=== PATIENT | male | born 1965 | race African-American/Black ===

== ENCOUNTER 2016-10-03 21:15 | Inpatient (IN) | payer OTHER ==
[2016-10-03 21:35] VITALS: BMI 37.8
--- NOTE | 2016-10-03 21:55 | HP ---
COWS - Scale Resting Pulse: 2= MD 101-120 Sweatin= Beads of Sweat on Face Restless Observation: 1= Difficult to Sit Still Pupil Size: 1= Pupils >than Normal Bone or Joint Aches: 4=Acute Joint/Muscle Pain Runny Nose/ Eye Tearin= Runny Nose/Eyes GI Upset > 30mins: 2= Nausea/Diarrhea Tremor Observation: 2= Slight Tremor Visible Yawning Observation: 0= None Anxiety or Irritability: 2=Irritable/Anxious Goose Flesh Skin: 0=Smooth Skin COWS Score: 19 CIWA Score - CIWA Score Nausea/Vomitin Muscle Tremors: 4-Moderate,w/Arms Extend Anxiety: 4-Mod. Anxious/Guarded Agitation: 4-Moderately Restless Paroxysmal Sweats: 4-Forehead w/Sweat Beads Orientation: 0-Oriented Tacttile Disturbances: 0-None Auditory Disturbances: 2-Mild Harshness/Frighten Visual Disturbances: 0-None Headache: 3-Moderate CIWA-Ar Total Score: 24 Admission ROS BHS - HPI Chief Complaint: C/O WITHDRAWAL SX'S. SEEKING DETOX TXMENT Allergies/Adverse Reactions: Allergies Allergy/AdvReac Type Severity Reaction Status Date / Time No Known Allergies Allergy Verified 10/03/16 21:48 History of Present Illness: 51 Y.O. MALE WITH POLYSUBSTANCE ABUSE ADMITTED TO DETOX. CLIENT IS KNOWN TO [facility]. REPORTS LONGEST CLEAN TIME 6 MONTHS. Exam Limitations: No Limitations - Ebola screening Have you traveled outside of the country in the last 21 days: No (N) Have you had contact with anyone from an Ebola affected area: No Have you been sick,other than usual withdrawal symptoms: No Do you have a fever: No - Review of Systems Constitutional: Chills, Diaphoresis, Loss of Appetite, Malaise, Night Sweats, Changes in sleep EENT: reports: No Symptoms Reported Respiratory: reports: No Symptoms reported Cardiac: reports: No Symptoms Reported GI: reports: Diarrhea, Poor Appetite, Abdominal cramping : reports: No Symptoms Reported Musculoskeletal: reports: Joint Pain (R HIP/ THIGH) Integumentary: reports: No Symptoms Reported Neuro: reports: No Symptoms reported Endocrine: reports: No Symptoms Reported Hematology: reports: No Symptoms Reported Psychiatric: reports: Anxious Other Systems: Reviewed and Negative Patient History - Patient Medical History Hx Anemia: No Hx Asthma: No Hx Chronic Obstructive Pulmonary Disease (COPD): No Hx Cancer: No Hx Cardiac Disorders: No Hx Congestive Heart Failure: No Hx Hypertension: No Hx Hypercholesterolemia: No Hx Pacemaker: No HX Cerebrovascular Accident: No Hx Seizures: No Hx Diabetes: No Hx Gastrointestinal Disorders: No Hx Liver Disease: No Hx Genitourinary Disorders: No Hx Sexually Transmitted Disorders: No Hx Renal Disease (ESRD): No Hx Thyroid Disease: No Hx Human Immunodeficiency Virus (HIV): No Hx Hepatitis C: No Hx Depression: No Hx Suicide Attempt: No Hx Bipolar Disorder: No Hx Schizophrenia: No Other Medical History: ANXIETY, DJD OF R HIP - Patient Surgical History Past Surgical History: Yes Hx Neurologic Surgery: No Hx Cataract Extraction: No Hx Cardiac Surgery: No Hx Lung Surgery: No Hx Breast Surgery: No Hx Breast Biopsy: No Hx Abdominal Surgery: No Hx Appendectomy: No Hx Cholecystectomy: No Hx Genitourinary Surgery: No Hx Section: No Hx Orthopedic Surgery: Yes (FX. LEFT ELBOW 01/2014) Anesthesia Reaction: No - PPD History Previous Implant?: Yes Documented Results: Positive w/o proof Implanted On Prior [facility] Admission?: No PPD to be Administered?: No - Smoking Cessation Smoking history: Current every day smoker Have you smoked in the past 12 months: Yes Aproximately how many cigarettes per day: 20 Cigars Per Day: 0 Hx Chewing Tobacco Use: No Initiated information on smoking cessation: Yes 'Breaking Loose' booklet given: 10/03/16 - Substance & Tx. History Hx Alcohol Use: Yes Hx Substance Use: Yes Substance Use Type: Alcohol, Cocaine, Opiates, Tranquilizers Hx Substance Use Treatment: Yes ([facility]) - Substances Abused HEROIN Route: Inhalation Frequency: Daily Amount used: 40 BAGS Age of first use: 21 Date of Last Use: 10/03/16 COCAINE Route: Smoking Frequency: Daily Amount used: 1 GM Age of first use: 20 Date of Last Use: 10/03/16 XANAX Route: Oral Frequency: Daily Amount used: 4 MG Age of first use: 49 Date of Last Use: 10/03/16 VODKA Route: Oral Frequency: Daily Amount used: 1 PINT Age of first use: 13 Date of Last Use: 10/03/16 Family Disease History - Family Disease History Family Disease History: Diabetes: Grandparent (HTN), Mother (HTN), Heart Disease : Grandparent, Mother, Other: Father (alcohol,dsa), Brother (dsa,alcohol) Admission Physical Exam [facility] - Vital Signs Vital Signs: Vital Signs - 24 hr 10/03/16 21:33 Temperature 98.6 F Pulse Rate 103 H Respiratory 20 Rate Blood Pressure 120/79 - Physical General Appearance: Yes: Appropriately Dressed, Mild Distress, Tremorous, Anxious HEENTM: Yes: EOMI, Normocephalic, Normal Voice, Pharynx Normal, Other (POOR DENTITION) Respiratory: Yes: Chest Non-Tender, Lungs Clear, Normal Breath Sounds, No Respiratory Distress, No Accessory Muscle Use Neck: Yes: No masses,lesions,Nodules, Supple, Trachea in good position Breast: Yes: Breast Exam Deferred Cardiology: Yes: Regular Rhythm, Regular Rate, S1, S2 Abdominal: Yes: Non Tender, Soft, Surgical Scar Genitourinary: Yes: Within Normal Limits Back: Yes: Within Normal Limits Musculoskeletal: Yes: Joint Stiffness, Other (LROM TO R PAIN) Extremities: Yes: Tremors Neurological: 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: 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 II-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 NML intact, Fully Oriented, Alert Integumentary: Yes: Clammy, Moist Lymphatic: Yes: Within Normal Limits - Diagnostic (1) Alcohol dependence with uncomplicated withdrawal Current Visit: Yes Status: Chronic (2) Cocaine dependence, uncomplicated Current Visit: Yes Status: Chronic (3) Nicotine dependence Current Visit: Yes Status: Chronic Qualifiers: Nicotine product type: cigarettes Substance use status: uncomplicated Qualified Code(s): F17.210 - Nicotine dependence, cigarettes, uncomplicated (4) Opioid dependence with withdrawal Current Visit: Yes Status: Chronic (5) Sedative, hypnotic or anxiolytic dependence with withdrawal, uncomplicated Current Visit: Yes Status: Chronic (6) Degenerative joint disease of right hip Current Visit: Yes Status: Chronic Qualifiers: Osteoarthritis type: unspecified Qualified Code(s): M16.11 - Unilateral primary osteoarthritis, right hip Cleared for Admission [facility] - Detox or Rehab [facility] Level of Care: Medically Managed Detox Regimen/Protocol: Methadone/Valium [facility] Breath Alcohol Content Breath Alcohol Content: 0 Urine Drug Screen - Results Urine Drug Screen Results: JESSE-Cocaine, OPI-Opiates, BZO-Benzodiazepines
[2016-10-03] MEDS ORDERED: guaiFENesin/D-METHORPHAN HB 10 ML UNIT-DOSE CUPS PO PRN (22:11)
[2016-10-03] MEDS ORDERED: MAGNESIUM CITRATE 300 ML BOTTLE PO PRN (22:11)
[2016-10-03] MEDS ORDERED: MAGNESIUM HYDROX 2400MG/30ML ORAL SUSPENSION 30 ML CUP PO PRN (22:11)
[2016-10-03] MEDS ORDERED: ACETAMINOPHEN 325 MG TABLET (FP) PO PRN (22:11)
[2016-10-03] MEDS ORDERED: MAG HYDROX/AL HYDROX/SIMETH 30 ML UNIT-DOSE CUP PO PRN (22:11)
[2016-10-03] MEDS ORDERED: hydrOXYzine PAMOATE 50 MG CAPSULE (FP) PO PRN (22:11)
[2016-10-03] MEDS ORDERED: MENTHOL/PHENOL 1 EACH UD MM PRN (22:11)
[2016-10-03] MEDS ORDERED: METHADONE HCL 10 MG TABLET (FOR DETOX USE ONLY) PO ONE ×2 (22:11→23:00)
[2016-10-03] MEDS ORDERED: diazePAM 5 MG TABLET PO ONE (22:11)
[2016-10-03] MEDS ORDERED: LOPERAMIDE HCL 2 MG CAPSULE PO PRN (22:11)
[2016-10-03] MEDS ORDERED: IBUPROFEN 400 MG TABLET (FP) PO PRN (22:11)
[2016-10-03] MEDS ORDERED: P-EPHED 60MG/TRIPROLIDI 2.5MG TABLET PO PRN (22:11)
[2016-10-03] MEDS ORDERED: cloNIDine HCL 0.1 MG TABLET PO PRN (22:13)
[2016-10-03] MEDS ORDERED: CYCLOBENZAPRINE HCL 10 MG TABLET (FP) PO PRN (22:14)
[2016-10-04] MEDS ORDERED: METHADONE HCL 10 MG TABLET (FOR DETOX USE ONLY) PO ONE ×3 (00:22→23:00)
[2016-10-04] MEDS ORDERED: diazePAM 5 MG TABLET PO PRN (00:22)
[2016-10-04] MEDS: diazePAM 5 MG TABLET PO SCH ×4 (00:33→22:05)
[2016-10-04] MEDS: NAPROXEN 500 MG TABLET (FP) PO SCH ×3 (00:33→22:05)
[2016-10-04] MEDS: diphenhydrAMINE HCL 50 MG CAPSULE PO PRN ×2 (02:06→22:05)
--- NOTE | 2016-10-04 09:59 | PN ---
[facility] CIWA - CIWA Score Nausea/Vomitin-Mild Nausea/No Vomiting Muscle Tremors: 3 Anxiety: 4-Mod. Anxious/Guarded Agitation: 3 Paroxysmal Sweats: 3 Orientation: 0-Oriented Tacttile Disturbances: 0-None Auditory Disturbances: 0-None Visual Disturbances: 0-None Headache: 0-None Present CIWA-Ar Total Score: 14 BHS COWS - Scale Resting Pulse: 0= SC 80 or Below Sweatin=Flushed/Facial Moisture Restless Observation: 1= Difficult to Sit Still Pupil Size: 0= Normal to Room Light Bone or Joint Aches: 1= Mild Discomfort Runny Nose/ Eye Tearin= Runny Nose/Eyes GI Upset > 30mins: 2= Nausea/Diarrhea Tremor Observation of Outstretched Hands: 2= Slight Tremor Visible Yawning Observation: 1= 1-2x During Session Anxiety or Irritability: 2=Irritable/Anxious Goose Flesh Skin: 0=Smooth Skin COWS Score: 13 S Progress Note (SOAP) Subjective: Anxiety,tremors,sweating,interrupted sleep,restless,body aches. Objective: 10/04/16 09:59 Vital Signs - 8 hr 10/04/16 10/04/16 10/04/16 03:24 06:07 09:32 Temperature 98.6 F 96 F L Pulse Rate 78 73 Respiratory 18 18 20 Rate Blood Pressure 120/79 125/87 Assessment: 10/04/16 09:59 Withdrawal sx. Plan: Continue detox
[2016-10-04] MEDS ORDERED: METHADONE HCL 10 MG TABLET (FOR DETOX USE ONLY) PO SCH (10:00)
[2016-10-04 10:03] LABS: URINE APPEARANCE CLEAR; URINE BILIRUBIN NEGATIVE (NEGATIVE); URINE BLOOD NEGATIVE (NEGATIVE); URINE COLOR YELLOW; URINE GLUCOSE (UA) NEGATIVE (NEGATIVE); URINE KETONE NEGATIVE (NEGATIVE); URINE LEUK ESTERASE NEGATIVE (NEGATIVE); URINE NITRITE NEGATIVE (NEGATIVE); URINE PROTEIN NEGATIVE (NEGATIVE); URINE UROBILINOGEN 2.0 E.U/dl E.U./dl (0.2-1.0)
[2016-10-04 10:07] LABS: MCH 31.7 pg (25.7-33.7); MCHC 33.7 g/dl (32.0-35.9); MEAN CELL VOLUME 94.1 fl (80-96); PLATELET COUNT 267 K/MM3 (134-434); RDW 14.1 % (11.9-15.9); WHITE BLOOD COUNT 5.2 K/mm3 (4.0-10.0)
[2016-10-04] MEDS: PRENATAL VITAMINS W/ FOLIC ACID TABLET (FP) PO SCH (10:15)
[2016-10-04] MEDS: LIDOCAINE 5% TOPICAL PATCH TP SCH (10:16)
[2016-10-04] MEDS: NICOTINE 21 MG/24 HOURS TOPICAL PATCH TD SCH (10:16)
[2016-10-04] MEDS: diazePAM 5 MG TABLET PO PRN (10:18)
[2016-10-04 10:39] LABS: ALBUMIN 2.9 g/dl (3.4-5.0); BILIRUBIN,TOTAL 0.3 mg/dL (0.2-1.0); CALCIUM 8.5 mg/dL (8.5-10.1); COCKROFT - GAULT 93.5; CREATININE 1.5 mg/dL (0.7-1.3); TOT PROT 5.8 g/dl (6.4-8.2)
--- NOTE | 2016-10-04 15:09 | CONSULT ---
[facility] Psychiatric Consult - Data Date of interview: 10/04/16 Admission source: [facility] Identifying data: Another admission to [facility] for this 51 y/o AA male seeking detox treatment on for alcohol,cocaine,xanax and opioid dependence.Patient is single without children,homeless,unemployed and supported on food stamps. Substance Abuse History: - Smoking Cessation. Smoking history: Current every day smoker. Have you smoked in the past 12 months: Yes. Aproximately how many cigarettes per day: 20. Cigars Per Day: 0. Hx Chewing Tobacco Use: No. Initiated information on smoking cessation: Yes. 'Breaking Loose' booklet given : 10/03/16. - Substance & Tx. History. Hx Alcohol Use: Yes. Hx Substance Use : Yes. Substance Use Type: Alcohol, Cocaine, Opiates, Tranquilizers. Hx Substance Use Treatment: Yes ([facility]). - Substances Abused. HEROIN. Route: Inhalation. Frequency: Daily. Amount used: 40 BAGS. Age of first use: 21. Date of Last Use: 10/03/16. COCAINE. Route: Smoking. Frequency: Daily. Amount used: 1 GM. Age of first use: 20. Date of Last Use: 10/03/16. XANAX. Route: Oral. Frequency: Daily. Amount used: 4 MG. Age of first use: 49. Date of Last Use: 10/03/16. VODKA. Route: Oral. Frequency: Daily. Amount used: 1 PINT. Age of first use: 13. Date of Last Use: 10/03/16. Confirmed by patient. Medical History: Significant for arthritis,cataract of left eye and a history of orthosurgery for a fracture of left elbow (2013). Psychiatric History: Patient denies. Physical/Sexual Abuse/Trauma History: Patient denies. Additional Comment: Urine Drug Screen Results: JESSE-Cocaine, OPI-Opiates, BZO- Benzodiazepines.Noted. Mental Status Exam - Mental Status Exam Alert and Oriented to: Time, Place, Person Cognitive Function: Good Patient Appearance: Well Groomed Mood: Hopeful, Euthymic Affect: Appropriate, Normal Range Patient Behavior: Fatigued, Appropriate, Cooperative Speech Pattern: Clear Voice Loudness: Normal Thought Process: Goal Oriented Thought Disorder: Not Present Hallucinations: Denies Suicidal Ideation: Denies Homicidal Ideation: Denies Insight/Judgement: Poor Sleep: Poorly, Difficulty falling asleep (requests seroquel) Appetite: Good Muscle strength/Tone: Normal Gait/Station: Normal Psychiatric Findings - Problem List ([place] 1, 2,3) (1) Alcohol dependence with uncomplicated withdrawal Current Visit: Yes Status: Chronic (2) Cocaine dependence, uncomplicated Current Visit: Yes Status: Acute (3) Nicotine dependence Current Visit: Yes Status: Acute Qualifiers: Nicotine product type: cigarettes Substance use status: uncomplicated Qualified Code(s): F17.210 - Nicotine dependence, cigarettes, uncomplicated (4) Opioid dependence with withdrawal Current Visit: Yes Status: Acute (5) Sedative, hypnotic or anxiolytic dependence with withdrawal, uncomplicated Current Visit: Yes Status: Acute (6) Drug-induced mood disorder Current Visit: Yes Status: Acute (7) Insomnia Current Visit: Yes Status: Chronic - Initial Treatment Plan Initial Treatment Plan: Psychoeducation.Detoxification.Medication : seroquel 50 mg (patient's request) po hs.Side effects/benefits discussed with patient.He agrees with this careplan.Observation.
[2016-10-04] MEDS ORDERED: QUEtiapine FUMARATE 50 MG TABLET PO SCH (22:00)
[2016-10-04] MEDS ORDERED: THIAMINE HCL 100 MG TABLET (FP) PO SCH (22:00)
--- NOTE | 2016-10-04 23:07 | EKG ---
Test Reason : Blood Pressure : / mmHG Vent. Rate : 070 BPM Atrial Rate : 070 BPM P-R Int : 154 ms QRS Dur : 064 ms QT Int : 374 ms P-R-T Axes : 014 034 -04 degrees QTc Int : 403 ms NORMAL SINUS RHYTHM NORMAL ECG NO PREVIOUS ECGS AVAILABLE Confirmed by SHAMAR RASHEED MD ([id number]) on 10/04/2016 11:06:52 PM Referred By: Confirmed By:SHAMAR RASHEED MD
[2016-10-05] MEDS: diazePAM 5 MG TABLET PO PRN ×2 (05:34→16:56)
[2016-10-05] MEDS ORDERED: METHADONE HCL 10 MG TABLET (FOR DETOX USE ONLY) PO ONE (10:00)
[2016-10-05] MEDS ORDERED: METHADONE HCL 5 MG TABLET (FOR DETOX USE ONLY) PO SCH (10:00)
[2016-10-05] MEDS ORDERED: diazePAM 5 MG TABLET PO SCH (10:00)
[2016-10-05] MEDS: PRENATAL VITAMINS W/ FOLIC ACID TABLET (FP) PO SCH (10:09)
[2016-10-05] MEDS: NICOTINE 21 MG/24 HOURS TOPICAL PATCH TD SCH (10:10)
[2016-10-05] MEDS: LIDOCAINE 5% TOPICAL PATCH TP SCH (10:10)
[2016-10-05] MEDS: NAPROXEN 500 MG TABLET (FP) PO SCH (10:10)
--- NOTE | 2016-10-05 12:16 | PN ---
S CIWA - CIWA Score Nausea/Vomitin Muscle Tremors: 3 Anxiety: 4-Mod. Anxious/Guarded Agitation: 4-Moderately Restless Paroxysmal Sweats: 3 Orientation: 0-Oriented Tacttile Disturbances: 0-None Auditory Disturbances: 0-None Visual Disturbances: 0-None Headache: 0-None Present CIWA-Ar Total Score: 16 BHS COWS - Scale Resting Pulse: 0= HI 80 or Below Sweatin=Flushed/Facial Moisture Restless Observation: 1= Difficult to Sit Still Pupil Size: 0= Normal to Room Light Bone or Joint Aches: 1= Mild Discomfort Runny Nose/ Eye Tearin= Runny Nose/Eyes GI Upset > 30mins: 2= Nausea/Diarrhea Tremor Observation of Outstretched Hands: 2= Slight Tremor Visible Yawning Observation: 1= 1-2x During Session Anxiety or Irritability: 2=Irritable/Anxious Goose Flesh Skin: 0=Smooth Skin COWS Score: 13 S Progress Note (SOAP) Subjective: Anxiety,tremors,sweating,interrupted sleep,restless,body aches. Objective: 10/05/16 12:12 Vital Signs - 8 hr 10/05/16 10/05/16 06:29 09:09 Temperature 97.0 F L 99.0 F Pulse Rate 62 68 Respiratory 18 18 Rate Blood Pressure 143/88 127/85 EKG noted Laboratory Tests 10/03/16 10/04/16 10/04/16 07:00 07:00 07:00 WBC 5.2 RBC 4.10 Hgb 13.0 Hct 38.6 MCV 94.1 MCHC 33.7 RDW 14.1 Plt Count 267 MPV 8.0 D Sodium 143 Potassium 4.1 Chloride 106 Carbon Dioxide 27 Anion Gap 10 BUN 19 H D Creatinine 1.5 H Creat Clearance w eGFR 48.95 Random Glucose 95 Calcium 8.5 Total Bilirubin 0.3 D AST 40 H ALT 47 Alkaline Phosphatase 112 Total Protein 5.8 L Albumin 2.9 L Urine Color Urine Appearance Urine pH Ur Specific [place] Urine Protein Urine Glucose (UA) Urine Ketones Urine Blood Urine Nitrite Urine Bilirubin Urine Urobilinogen Ur Leukocyte Esterase RPR Titer Hepatitis C Antibody >11.0 H 10/04/16 10/04/16 07:00 07:00 WBC RBC Hgb Hct MCV MCHC RDW Plt Count MPV Sodium Potassium Chloride Carbon Dioxide Anion Gap BUN Creatinine Creat Clearance w eGFR Random Glucose Calcium Total Bilirubin AST ALT Alkaline Phosphatase Total Protein Albumin Urine Color Yellow Urine Appearance Clear Urine pH 5.0 D Ur Specific [place] 1.024 Urine Protein Negative Urine Glucose (UA) Negative Urine Ketones Negative Urine Blood Negative Urine Nitrite Negative Urine Bilirubin Negative Urine Urobilinogen 2.0 e.u/dl Ur Leukocyte Esterase Negative RPR Titer Nonreactive Hepatitis C Antibody labs noted Assessment: 10/05/16 12:15 Withdrawal sx. Plan: Continue detox
[2016-10-05 17:14] VITALS: BP 123/70; PULSE 70; TEMP 98.1
--- NOTE | 2016-10-05 17:52 | DS ---
[id number] Present History: Alcohol Dependence, Cocaine Dependence, Opioid Dependence, Sedative Dependence Pertinent Past History: DJD Rt. Hip - Physical Exam Results Vital Signs: Vital Signs Temperature 98.1 F 10/05/16 17:13 Pulse Rate 70 10/05/16 17:13 Respiratory Rate 19 10/05/16 17:13 Blood Pressure 123/70 10/05/16 17:13 O2 Sat by Pulse Oximetry (%) Pertinent Admission Physical Exam Findings: Withdrawal sx Laboratory Last Values WBC 5.2 K/mm3 (4.0-10.0) 10/04/16 07:00 RBC 4.10 M/mm3 (4.00-5.60) 10/04/16 07:00 Hgb 13.0 GM/dL (11.7-16.9) 10/04/16 07:00 Hct 38.6 % (35.4-49) 10/04/16 07:00 MCV 94.1 fl (80-96) 10/04/16 07:00 MCHC 33.7 g/dl (32.0-35.9) 10/04/16 07:00 RDW 14.1 % (11.9-15.9) 10/04/16 07:00 Plt Count 267 K/MM3 (134-434) 10/04/16 07:00 MPV 8.0 fl (7.5-11.1) D 10/04/16 07:00 Sodium 143 mmol/L (136-145) 10/04/16 07:00 Potassium 4.1 mmol/L (3.5-5.1) 10/04/16 07:00 Chloride 106 mmol/L (98-107) 10/04/16 07:00 Carbon Dioxide 27 mmol/L (21-32) 10/04/16 07:00 Anion Gap 10 (8-16) 10/04/16 07:00 BUN 19 mg/dL (7-18) H D 10/04/16 07:00 Creatinine 1.5 mg/dL (0.7-1.3) H 10/04/16 07:00 Creat Clearance w eGFR 48.95 (>60) 10/04/16 07:00 Random Glucose 95 mg/dL (74-106) 10/04/16 07:00 Calcium 8.5 mg/dL (8.5-10.1) 10/04/16 07:00 Total Bilirubin 0.3 mg/dL (0.2-1.0) D 10/04/16 07:00 AST 40 U/L (15-37) H 10/04/16 07:00 ALT 47 U/L (12-78) 10/04/16 07:00 Alkaline Phosphatase 112 U/L (45-117) 10/04/16 07:00 Total Protein 5.8 g/dl (6.4-8.2) L 10/04/16 07:00 Albumin 2.9 g/dl (3.4-5.0) L 10/04/16 07:00 Urine Color Yellow 10/04/16 07:00 Urine Appearance Clear 10/04/16 07:00 Urine pH 5.0 (5.0-8.0) D 10/04/16 07:00 Ur Specific [place] 1.024 (1.001-1.035) 10/04/16 07:00 Urine Protein Negative (NEGATIVE) 10/04/16 07:00 Urine Glucose (UA) Negative (NEGATIVE) 10/04/16 07:00 Urine Ketones Negative (NEGATIVE) 10/04/16 07:00 Urine Blood Negative (NEGATIVE) 10/04/16 07:00 Urine Nitrite Negative (NEGATIVE) 10/04/16 07:00 Urine Bilirubin Negative (NEGATIVE) 10/04/16 07:00 Urine Urobilinogen 2.0 e.u/dl E.U./dl (0.2-1.0) 10/04/16 07:00 Ur Leukocyte Esterase Negative (NEGATIVE) 10/04/16 07:00 RPR Titer Nonreactive (NONREACTIVE) 10/04/16 07:00 Hepatitis C Antibody >11.0 s/co ratio (0.0-0.9) H 10/03/16 07:00 labs noted pt. informed of hep c result - Treatment Patient has Accepted a Rehab Referral to: pt. was referred to [facility], however he signed out AMA. - Medication Discharge Medications: Ambulatory Orders NK [No Known Home Medication] 03/31/16 - Diagnosis (1) Cocaine dependence, uncomplicated Status: Acute (2) Drug-induced mood disorder Status: Acute (3) Nicotine dependence Status: Acute Qualifiers: Nicotine product type: cigarettes Substance use status: uncomplicated Qualified Code(s): F17.210 - Nicotine dependence, cigarettes, uncomplicated (4) Opioid dependence with withdrawal Status: Acute (5) Sedative, hypnotic or anxiolytic dependence with withdrawal, uncomplicated Status: Acute (6) Alcohol dependence with uncomplicated withdrawal Status: Chronic (7) Degenerative joint disease of right hip Status: Chronic Qualifiers: Osteoarthritis type: unspecified Qualified Code(s): M16.11 - Unilateral primary osteoarthritis, right hip (8) Insomnia Status: Chronic - AMA Did Patient Leave Against Medical Advice: Yes
[2016-10-06] MEDS ORDERED: METHADONE HCL 5 MG TABLET (FOR DETOX USE ONLY) PO ONE (10:00)
[2016-10-07] MEDS ORDERED: diazePAM 5 MG TABLET PO SCH (10:00)
[2016-10-07] MEDS ORDERED: METHADONE HCL 10 MG TABLET (FOR DETOX USE ONLY) PO SCH (10:00)
[2016-10-07] MEDS ORDERED: METHADONE HCL 5 MG TABLET (FOR DETOX USE ONLY) PO ONE (10:00)
[2016-10-07 14:16] LABS: HCV LOG 10 5.212 (.)
[2016-10-08] MEDS ORDERED: METHADONE HCL 5 MG TABLET (FOR DETOX USE ONLY) PO SCH (06:00)
[2016-10-08] MEDS ORDERED: METHADONE HCL 10 MG TABLET (FOR DETOX USE ONLY) PO ONE (10:00)
[2016-10-09] MEDS ORDERED: METHADONE HCL 5 MG TABLET (FOR DETOX USE ONLY) PO ONE (06:00)
== END 2016-10-05 17:59 | disposition left against medical advice (07) | DRG 770 ==
LOC: YASAS 21:15 → Y3N 22:41
PROVIDERS: ADMIT Internal Medicine; ATTEND Internal Medicine
PROC: HZ2ZZZZ Detoxification Services for Substance Abuse Treatment (ICD-10-PCS; principal; 2016-10-03)
DX: F11.23 Opioid dependence with withdrawal (principal); F13.230 Sedative, hypnotic or anxiolytic dependence with withdrawal, uncomplicated; F10.230 Alcohol dependence with withdrawal, uncomplicated; F14.20 Cocaine dependence, uncomplicated; F17.210 Nicotine dependence, cigarettes, uncomplicated; F19.24 Other psychoactive substance dependence with psychoactive substance-induced mood disorder; G47.00 Insomnia, unspecified; M16.11 Unilateral primary osteoarthritis, right hip; H26.9 Unspecified cataract; Z59.0 Homelessness
CPT/HCPCS: 36415; 80053; 81003; 85027; 86593; 87522; 93005; 93010

== ENCOUNTER 2016-11-08 10:24 | Inpatient (IN) | payer OTHER ==
[2016-11-08 14:07] VITALS: BMI 35.4
--- NOTE | 2016-11-08 15:07 | HP ---
COWS - Scale Resting Pulse: 0= IN 80 or Below Sweatin=Flushed/Facial Moisture Restless Observation: 1= Difficult to Sit Still Pupil Size: 0= Normal to Room Light Bone or Joint Aches: 2= Severe Diffuse Aches Runny Nose/ Eye Tearin= Runny Nose/Eyes GI Upset > 30mins: 2= Nausea/Diarrhea Tremor Observation: 2= Slight Tremor Visible Yawning Observation: 2= >3x During Session Anxiety or Irritability: 2=Irritable/Anxious Goose Flesh Skin: 3=Piloerection COWS Score: 18 CIWA Score - CIWA Score Nausea/Vomitin-Mild Nausea/No Vomiting Muscle Tremors: 4-Moderate,w/Arms Extend Anxiety: 3 Agitation: 4-Moderately Restless Paroxysmal Sweats: 3 Orientation: 0-Oriented Tacttile Disturbances: 0-None Auditory Disturbances: 0-None Visual Disturbances: 0-None Headache: 1-Very Mild CIWA-Ar Total Score: 16 Admission ROS S - HPI Chief Complaint: I am here to detox and go to rehab afterwards. Allergies/Adverse Reactions: Allergies Allergy/AdvReac Type Severity Reaction Status Date / Time No Known Allergies Allergy Verified 11/08/16 14:43 History of Present Illness: pt is a 51yr old male with a history of alcohol, xanax, cocaine and heroin dependence seeking detox for treatment. Pt was sober for 7months before relapsed d/t rt hip pain. Exam Limitations: Physical Impairment (was using a cane will order cane for ambulating) - Ebola screening Have you traveled outside of the country in the last 21 days: No Have you had contact with anyone from an Ebola affected area: No Have you been sick,other than usual withdrawal symptoms: No Do you have a fever: No - Review of Systems Constitutional: Chills, Diaphoresis, Loss of Appetite, Night Sweats, Changes in sleep, Unintentional Wgt. Loss EENT: reports: Tearing Respiratory: reports: No Symptoms reported Cardiac: reports: No Symptoms Reported GI: reports: Diarrhea, Nausea, Poor Appetite, Poor Fluid Intake, Indigestion : reports: No Symptoms Reported Musculoskeletal: reports: Joint Pain, Muscle Pain Integumentary: reports: Flushing, Rash (light rash back and chest), Sweating Neuro: reports: Headache, Tingling Endocrine: reports: Excessive Sweating, Flushing, Intolerance to Cold, Intolerance to Heat Hematology: reports: No Symptoms Reported Psychiatric: reports: No Sypmtoms Reported, Judgement Intact, Mood/Affect Appropiate, Orientated x3, Agitated, Anxious Other Systems: Reviewed and Negative Patient History - Patient Medical History Hx Anemia: No Hx Asthma: No Hx Chronic Obstructive Pulmonary Disease (COPD): No Hx Cancer: No Hx Cardiac Disorders: No Hx Congestive Heart Failure: No Hx Hypertension: Yes Hx Hypercholesterolemia: No Hx Pacemaker: No HX Cerebrovascular Accident: No Hx Seizures: No Hx Dementia: No Hx Diabetes: No Hx Gastrointestinal Disorders: No Hx Liver Disease: No Hx Genitourinary Disorders: No Hx Sexually Transmitted Disorders: No Hx Renal Disease (ESRD): No Hx Thyroid Disease: No Hx Human Immunodeficiency Virus (HIV): No (negative) Hx Hepatitis C: Yes (couple of months ago diagnosed with hep c) Hx Depression: Yes Hx Suicide Attempt: No (denies) Hx Bipolar Disorder: No Hx Schizophrenia: No - Patient Surgical History Past Surgical History: Yes Hx Neurologic Surgery: No Hx Cataract Extraction: No Hx Cardiac Surgery: No Hx Lung Surgery: No Hx Breast Surgery: No Hx Breast Biopsy: No Hx Abdominal Surgery: Yes (abd hernia 2014) Hx Appendectomy: No Hx Cholecystectomy: No Hx Genitourinary Surgery: No Hx Section: No Hx Orthopedic Surgery: Yes (FX. LEFT ELBOW 01/2014) Anesthesia Reaction: No - PPD History Previous Implant?: Yes Documented Results: Positive w/proof PPD to be Administered?: No - Reproductive History Patient is a Female of Child Bearing Age (11 -55 yrs old): No - Smoking Cessation Smoking history: Current every day smoker Have you smoked in the past 12 months: Yes Aproximately how many cigarettes per day: 20 Cigars Per Day: 0 Hx Chewing Tobacco Use: No Initiated information on smoking cessation: Yes 'Breaking Loose' booklet given: 11/08/16 - Substance & Tx. History Hx Alcohol Use: Yes Hx Substance Use: Yes Substance Use Type: Alcohol, Cocaine, Heroin, Prescribed Hx Substance Use Treatment: Yes ([facility] detox last month 10/2016) - Substances Abused Heroin Route: Inhalation Frequency: Daily Amount used: 25-30 bags Age of first use: 21 Date of Last Use: 11/07/16 Crack Route: Smoking Frequency: Daily Amount used: $50 Age of first use: 20 Date of Last Use: 11/07/16 Alcohol-vodka Route: Oral Frequency: Daily Amount used: 1.5 pint vodka Age of first use: 13 Date of Last Use: 11/07/16 Xanax Route: Oral Frequency: 1-2 times per week Amount used: 2 sticks Age of first use: 50 Date of Last Use: 11/05/16 Family Disease History - Family Disease History Family Disease History: Diabetes: Grandparent (HTN), Mother (HTN), Heart Disease : Grandparent, Mother, Other: Father (alcohol,dsa), Brother (dsa,alcohol) Admission Physical Exam S - Vital Signs Vital Signs: Vital Signs - 24 hr 11/08/16 14:04 Temperature 97 F L Pulse Rate 79 Respiratory 20 Rate Blood Pressure 127/78 - Physical General Appearance: Yes: Appropriately Dressed, Moderate Distress, Obese, Tremorous, Irritable, Sweating, Anxious HEENTM: Yes: Normal Voice, Nasal Congestion Respiratory: Yes: Lungs Clear, Normal Breath Sounds, No Respiratory Distress Neck: Yes: No masses,lesions,Nodules Breast: Yes: Within Normal Limits Cardiology: Yes: Regular Rhythm, Regular Rate, S1, S2 Abdominal: Yes: Normal Bowel Sounds, Non Tender, Flat, Soft Back: Yes: Within Normal Limits, Normal Inspection Musculoskeletal: Yes: full range of Motion, Other (right hip pain) Extremities: Yes: Normal Capillary Refill, Normal Inspection, Tremors Neurological: Yes: Fully Oriented, Alert, Normal Response Integumentary: Yes: Normal Color, Diaphoresis, Rash (to chest and back) Lymphatic: Yes: Within Normal Limits - Diagnostic (1) Cocaine dependence, uncomplicated Current Visit: Yes Status: Chronic (2) Nicotine dependence Current Visit: Yes Status: Chronic Qualifiers: Nicotine product type: cigarettes Substance use status: uncomplicated Qualified Code(s): F17.210 - Nicotine dependence, cigarettes, uncomplicated (3) Opioid dependence with withdrawal Current Visit: Yes Status: Chronic (4) Sedative, hypnotic or anxiolytic dependence with withdrawal, uncomplicated Current Visit: Yes Status: Chronic (5) Alcohol dependence with uncomplicated withdrawal Current Visit: Yes Status: Chronic (6) Degenerative joint disease of right hip Current Visit: No Status: Chronic Qualifiers: Osteoarthritis type: other secondary Qualified Code(s): M16.7 - Other unilateral secondary osteoarthritis of hip (7) GERD (gastroesophageal reflux disease) Current Visit: Yes Status: Chronic Qualifiers: Esophagitis presence: without esophagitis Qualified Code(s): K21.9 - Gastro-esophageal reflux disease without esophagitis (8) Rash and nonspecific skin eruption Current Visit: Yes Status: Acute (9) Hepatitis C Current Visit: Yes Status: Chronic Qualifiers: Viral hepatitis chronicity: chronic Hepatic coma status: without hepatic coma Qualified Code(s): B18.2 - Chronic viral hepatitis C Cleared for Admission [facility] - Detox or Rehab [facility] Level of Care: Medically Managed Detox Regimen/Protocol: Methadone/Librium [facility] Breath Alcohol Content Breath Alcohol Content: 0 Urine Drug Screen - Results Drug Screen Negative: No Urine Drug Screen Results: JESSE-Cocaine, OPI-Opiates, BZO-Benzodiazepines, MTD- Methadone
[2016-11-08] MEDS ORDERED: P-EPHED 60MG/TRIPROLIDI 2.5MG TABLET PO PRN (15:20)
[2016-11-08] MEDS ORDERED: MAGNESIUM CITRATE 300 ML BOTTLE PO PRN (15:20)
[2016-11-08] MEDS ORDERED: NICOTINE POLACRILEX 4 MG GUM BC PRN (15:20)
[2016-11-08] MEDS ORDERED: MAGNESIUM HYDROX 2400MG/30ML ORAL SUSPENSION 30 ML CUP PO PRN (15:20)
[2016-11-08] MEDS ORDERED: guaiFENesin/D-METHORPHAN HB 10 ML UNIT-DOSE CUPS PO PRN (15:20)
[2016-11-08] MEDS ORDERED: MAG HYDROX/AL HYDROX/SIMETH 30 ML UNIT-DOSE CUP PO PRN (15:20)
[2016-11-08] MEDS ORDERED: LOPERAMIDE HCL 2 MG CAPSULE PO PRN (15:20)
[2016-11-08] MEDS ORDERED: ACETAMINOPHEN 325 MG TABLET (FP) PO PRN (15:20)
[2016-11-08] MEDS ORDERED: MENTHOL/PHENOL 1 EACH UD MM PRN (15:20)
[2016-11-08] MEDS ORDERED: chlordiazePOXIDE HCL 25 MG CAPSULE PO ONE (16:30)
[2016-11-08] MEDS ORDERED: METHADONE HCL 10 MG TABLET (FOR DETOX USE ONLY) PO ONE ×2 (16:30→23:00)
[2016-11-08] MEDS: chlordiazePOXIDE HCL 25 MG CAPSULE PO SCH ×2 (16:42→22:24)
[2016-11-08] MEDS: IBUPROFEN 400 MG TABLET (FP) PO PRN (17:27)
[2016-11-08] MEDS: THIAMINE HCL 100 MG TABLET (FP) PO SCH (22:24)
[2016-11-08] MEDS: RANITIDINE HCL 150 MG TABLET (FP) PO SCH (22:24)
[2016-11-08] MEDS: FLUOCINONIDE 0.05% TOP OINT (60 GM TUBE) TP SCH (22:24)
[2016-11-08] MEDS: METHYL SALICYLATE/MENTHOL OINT 30 GM TUBE TP SCH (22:24)
[2016-11-08 22:26] LABS: URINE APPEARANCE CLEAR; URINE BILIRUBIN NEGATIVE (NEGATIVE); URINE BLOOD NEGATIVE (NEGATIVE); URINE COLOR DKYELLOW; URINE GLUCOSE (UA) NEGATIVE (NEGATIVE); URINE KETONE NEGATIVE (NEGATIVE); URINE LEUK ESTERASE NEGATIVE (NEGATIVE); URINE NITRITE NEGATIVE (NEGATIVE); URINE PROTEIN NEGATIVE (NEGATIVE); URINE UROBILINOGEN 2.0 E.U/dl E.U./dl (0.2-1.0)
[2016-11-08] MEDS: diphenhydrAMINE HCL 50 MG CAPSULE PO PRN (22:26)
[2016-11-08] MEDS: LIDOCAINE PATCH REMOVAL MC SCH (22:44)
[2016-11-09] MEDS: IBUPROFEN 400 MG TABLET (FP) PO PRN ×2 (01:48→13:03)
[2016-11-09] MEDS: diphenhydrAMINE HCL 50 MG CAPSULE PO PRN ×2 (01:50→22:18)
[2016-11-09] MEDS: chlordiazePOXIDE HCL 25 MG CAPSULE PO SCH ×4 (05:20→22:17)
--- NOTE | 2016-11-09 07:07 | CONSULT ---
[facility] Psychiatric Consult - Data Date of interview: 11/09/16 Admission source: [facility] Identifying data: This is 51 years old male with no psychiatric hospitalization history intoxicated with: Alcohol, Cocaine, Opioids, Xanax and Nicotine Substance Abuse History: - Smoking Cessation. Smoking history: Current every day smoker. Have you smoked in the past 12 months: Yes. Aproximately how many cigarettes per day: 20. Cigars Per Day: 0. Hx Chewing Tobacco Use: No. Initiated information on smoking cessation: Yes. 'Breaking Loose' booklet given : 11/08/16. - Substance & Tx. History. Hx Alcohol Use: Yes. Hx Substance Use : Yes. Substance Use Type: Alcohol, Cocaine, Heroin, Prescribed. Hx Substance Use Treatment: Yes ([facility] last month 10/2016). - Substances Abused. * * Heroin. Route: Inhalation. Frequency: Daily. Amount used: 25-30 bags. Age of first use: 21. Date of Last Use: 11/07/16. Crack. Route: Smoking. Frequency: Daily. Amount used: $50. Age of first use: 20. Date of Last Use: 11/07/16. Alcohol-vodka. Route: Oral. Frequency: Daily. Amount used: 1.5 pint vodka. Age of first use: 13. Date of Last Use: 11/07/16. Xanax. Route: Oral. Frequency: 1-2 times per week. Amount used: 2 sticks. Age of first use: 50. Date of Last Use: 11/05/16 Medical History: MMTP. 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 GERD, HepC+, Right hip degenerative disorder, Syncope Psychiatric History: Patient reprots history of depression and anaxioety, reports no medications taking prior to admission Physical/Sexual Abuse/Trauma History: Denies Additional Comment: Observation. Detox Unit Care Protocol Mental Status Exam - Mental Status Exam Alert and Oriented to: Person Cognitive Function: Fair Patient Appearance: Unkempt Mood: Sad Affect: Flat Patient Behavior: Sedated Speech Pattern: Delayed Voice Loudness: Mildly Soft/Quiet Thought Process: Circumstantial Thought Disorder: Being Controlled Hallucinations: Denies Suicidal Ideation: Denies Homicidal Ideation: Denies Insight/Judgement: Fair Sleep: Difficulty falling asleep Appetite: Weight gain Muscle strength/Tone: Mild Hypotonicity Gait/Station: Shuffling Additional Comments: Observation. Detox Unit Care Protocol Psychiatric Findings - Problem List ([place] 1, 2,3) (1) Cocaine dependence, uncomplicated Current Visit: Yes Status: Chronic (2) Nicotine dependence Current Visit: Yes Status: Chronic Qualifiers: Nicotine product type: cigarettes Substance use status: uncomplicated Qualified Code(s): F17.210 - Nicotine dependence, cigarettes, uncomplicated (3) Sedative, hypnotic or anxiolytic dependence with withdrawal, uncomplicated Current Visit: Yes Status: Chronic (4) Drug-induced mood disorder Current Visit: No Status: Acute (5) Opioid dependence in early, early partial, sustained full, or sustained partial remission Current Visit: Yes Status: Acute - Initial Treatment Plan Initial Treatment Plan: Observation. Detox Unit Care Protocol
[2016-11-09 10:00] LABS: ANION GAP 9 (8-16); BILIRUBIN,TOTAL 0.3 mg/dL (0.2-1.0); CALCIUM 8.4 mg/dL (8.5-10.1); CO2 27 mmol/L (21-32); COCKROFT - GAULT 109.61; CREATININE 1.2 mg/dL (0.7-1.3); GLUCOSE,RANDOM 98 mg/dL (74-106); SGOT/AST 45 U/L (15-37); SGPT/ALT 68 U/L (12-78); TOT PROT 5.8 g/dl (6.4-8.2)
[2016-11-09] MEDS ORDERED: METHADONE HCL 10 MG TABLET (FOR DETOX USE ONLY) PO SCH (10:00)
[2016-11-09 10:01] LABS: ALK PHOS 134 U/L (45-117)
[2016-11-09 10:16] LABS: MCH 31.8 pg (25.7-33.7); MCHC 34.1 g/dl (32.0-35.9); MEAN CELL VOLUME 93.2 fl (80-96); MEAN PLT VOLUME 8.4 fl (7.5-11.1); PLATELET COUNT 225 K/MM3 (134-434); WHITE BLOOD COUNT 4.8 K/mm3 (4.0-10.0)
[2016-11-09] MEDS: PRENATAL VITAMINS W/ FOLIC ACID TABLET (FP) PO SCH (10:34)
[2016-11-09] MEDS: RANITIDINE HCL 150 MG TABLET (FP) PO SCH ×2 (10:34→22:17)
[2016-11-09] MEDS: METHYL SALICYLATE/MENTHOL OINT 30 GM TUBE TP SCH ×2 (10:34→22:19)
[2016-11-09] MEDS: FLUOCINONIDE 0.05% TOP OINT (60 GM TUBE) TP SCH ×2 (10:35→23:21)
[2016-11-09] MEDS: LIDOCAINE 5% TOPICAL PATCH TP SCH (10:38)
[2016-11-09] MEDS: NICOTINE 21 MG/24 HOURS TOPICAL PATCH TD SCH (11:00)
--- NOTE | 2016-11-09 11:10 | PN ---
S CIWA - CIWA Score Nausea/Vomitin Muscle Tremors: 3 Anxiety: 2 Agitation: 3 Paroxysmal Sweats: 1-Minimal Palms Moist Orientation: 0-Oriented Tacttile Disturbances: 1-Very Mild Itch/Numbness Auditory Disturbances: 1-Very Mild Visual Disturbances: 1-Very Mild Sensitivity Headache: 2-Mild CIWA-Ar Total Score: 17 BHS COWS - Scale Resting Pulse: 0= AR 80 or Below Sweatin= Chills/Flushing Restless Observation: 3= Extraneous Movement Pupil Size: 1= Pupils >than Normal Bone or Joint Aches: 2= Severe Diffuse Aches Runny Nose/ Eye Tearin= Runny Nose/Eyes GI Upset > 30mins: 2= Nausea/Diarrhea Tremor Observation of Outstretched Hands: 2= Slight Tremor Visible Yawning Observation: 1= 1-2x During Session Anxiety or Irritability: 2=Irritable/Anxious Goose Flesh Skin: 0=Smooth Skin COWS Score: 16 S Progress Note (SOAP) Subjective: ALERT,IRRITABLE,ANXIOUS,INTERRUPTED SLEEP,TREMOR,PAIN IN THE BODY AND BACK Objective: 11/09/16 11:08 Vital Signs Temperature 97.9 F 11/09/16 10:02 Pulse Rate 68 11/09/16 10:02 Respiratory Rate 20 11/09/16 10:02 Blood Pressure 136/82 11/09/16 10:02 O2 Sat by Pulse Oximetry (%) 11/09/16 11:08 EKG NSR,NORMAL ECG Laboratory Last Values WBC 4.8 K/mm3 (4.0-10.0) 11/09/16 07:00 RBC 4.09 M/mm3 (4.00-5.60) 11/09/16 07:00 Hgb 13.0 GM/dL (11.7-16.9) 11/09/16 07:00 Hct 38.1 % (35.4-49) 11/09/16 07:00 MCV 93.2 fl (80-96) 11/09/16 07:00 MCHC 34.1 g/dl (32.0-35.9) 11/09/16 07:00 RDW 14.0 % (11.9-15.9) 11/09/16 07:00 Plt Count 225 K/MM3 (134-434) 11/09/16 07:00 MPV 8.4 fl (7.5-11.1) 11/09/16 07:00 Sodium 142 mmol/L (136-145) 11/09/16 07:00 Potassium 4.0 mmol/L (3.5-5.1) 11/09/16 07:00 Chloride 106 mmol/L (98-107) 11/09/16 07:00 Carbon Dioxide 27 mmol/L (21-32) 11/09/16 07:00 Anion Gap 9 (8-16) 11/09/16 07:00 BUN 19 mg/dL (7-18) H 11/09/16 07:00 Creatinine 1.2 mg/dL (0.7-1.3) 11/09/16 07:00 Creat Clearance w eGFR > 60 (>60) 11/09/16 07:00 Random Glucose 98 mg/dL (74-106) 11/09/16 07:00 Calcium 8.4 mg/dL (8.5-10.1) L 11/09/16 07:00 Total Bilirubin 0.3 mg/dL (0.2-1.0) 11/09/16 07:00 AST 45 U/L (15-37) H 11/09/16 07:00 ALT 68 U/L (12-78) D 11/09/16 07:00 Alkaline Phosphatase 134 U/L (45-117) H 11/09/16 07:00 Total Protein 5.8 g/dl (6.4-8.2) L 11/09/16 07:00 Albumin 3.0 g/dl (3.4-5.0) L 11/09/16 07:00 Urine Color Dkyellow 11/08/16 21:45 Urine Appearance Clear 11/08/16 21:45 Urine pH 5.0 (5.0-8.0) 11/08/16 21:45 Urine Protein Negative (NEGATIVE) 11/08/16 21:45 Urine Glucose (UA) Negative (NEGATIVE) 11/08/16 21:45 Urine Ketones Negative (NEGATIVE) 11/08/16 21:45 Urine Blood Negative (NEGATIVE) 11/08/16 21:45 Urine Nitrite Negative (NEGATIVE) 11/08/16 21:45 Urine Bilirubin Negative (NEGATIVE) 11/08/16 21:45 Urine Urobilinogen 2.0 e.u/dl E.U./dl (0.2-1.0) 11/08/16 21:45 Ur Leukocyte Esterase Negative (NEGATIVE) 11/08/16 21:45 Assessment: 11/09/16 11:09 WITHDRAWAL SYMPTOM Plan: CONTINUE DETOX
--- NOTE | 2016-11-09 11:42 | EKG ---
Test Reason : Blood Pressure : / mmHG Vent. Rate : 073 BPM Atrial Rate : 073 BPM P-R Int : 170 ms QRS Dur : 072 ms QT Int : 404 ms P-R-T Axes : 019 029 038 degrees QTc Int : 445 ms NORMAL SINUS RHYTHM NORMAL ECG WHEN COMPARED WITH ECG OF 04-OCT-2016 00:17, NO SIGNIFICANT CHANGE WAS FOUND Confirmed by DYLAN MAYNARD MD ([id number]) on 11/09/2016 11:42:25 AM Referred By: Confirmed By:DYLAN MAYNARD MD
[2016-11-09] MEDS: chlordiazePOXIDE HCL 25 MG CAPSULE PO PRN (13:03)
[2016-11-09] MEDS: THIAMINE HCL 100 MG TABLET (FP) PO SCH (22:17)
[2016-11-09] MEDS: LIDOCAINE PATCH REMOVAL MC SCH (23:22)
[2016-11-10] MEDS: diphenhydrAMINE HCL 50 MG CAPSULE PO PRN ×2 (02:19→22:17)
[2016-11-10] MEDS: IBUPROFEN 400 MG TABLET (FP) PO PRN ×2 (02:19→17:15)
[2016-11-10] MEDS: chlordiazePOXIDE HCL 25 MG CAPSULE PO SCH ×2 (06:09→10:32)
[2016-11-10] MEDS: METHADONE HCL 5 MG TABLET (FOR DETOX USE ONLY) PO SCH (10:31)
[2016-11-10] MEDS: RANITIDINE HCL 150 MG TABLET (FP) PO SCH ×2 (10:32→22:13)
[2016-11-10] MEDS: PRENATAL VITAMINS W/ FOLIC ACID TABLET (FP) PO SCH (10:32)
[2016-11-10] MEDS: METHYL SALICYLATE/MENTHOL OINT 30 GM TUBE TP SCH ×2 (10:33→22:15)
[2016-11-10] MEDS: NICOTINE 21 MG/24 HOURS TOPICAL PATCH TD SCH (10:33)
[2016-11-10] MEDS: FLUOCINONIDE 0.05% TOP OINT (60 GM TUBE) TP SCH ×2 (10:33→22:15)
[2016-11-10] MEDS: LIDOCAINE 5% TOPICAL PATCH TP SCH (10:33)
--- NOTE | 2016-11-10 10:37 | PN ---
S CIWA - CIWA Score Nausea/Vomitin Muscle Tremors: 3 Anxiety: 3 Agitation: 2 Paroxysmal Sweats: 1-Minimal Palms Moist Orientation: 0-Oriented Tacttile Disturbances: 1-Very Mild Itch/Numbness Auditory Disturbances: 1-Very Mild Visual Disturbances: 1-Very Mild Sensitivity Headache: 2-Mild CIWA-Ar Total Score: 17 BHS COWS - Scale Resting Pulse: 0= ID 80 or Below Sweatin= Chills/Flushing Restless Observation: 3= Extraneous Movement Pupil Size: 1= Pupils >than Normal Bone or Joint Aches: 2= Severe Diffuse Aches Runny Nose/ Eye Tearin= Runny Nose/Eyes GI Upset > 30mins: 2= Nausea/Diarrhea Tremor Observation of Outstretched Hands: 2= Slight Tremor Visible Yawning Observation: 1= 1-2x During Session Anxiety or Irritability: 2=Irritable/Anxious Goose Flesh Skin: 0=Smooth Skin COWS Score: 16 S Progress Note (SOAP) Subjective: ALERT,IRRITABLE,ANXIOUS,INTERRUPTED SLEEP,PAIN IN THE BODY AND BACK Objective: 11/10/16 10:36 Vital Signs Temperature 98.1 F 11/10/16 09:35 Pulse Rate 67 11/10/16 09:35 Respiratory Rate 18 11/10/16 09:35 Blood Pressure 139/80 11/10/16 09:35 O2 Sat by Pulse Oximetry (%) Laboratory Last Values WBC 4.8 K/mm3 (4.0-10.0) 11/09/16 07:00 RBC 4.09 M/mm3 (4.00-5.60) 11/09/16 07:00 Hgb 13.0 GM/dL (11.7-16.9) 11/09/16 07:00 Hct 38.1 % (35.4-49) 11/09/16 07:00 MCV 93.2 fl (80-96) 11/09/16 07:00 MCHC 34.1 g/dl (32.0-35.9) 11/09/16 07:00 RDW 14.0 % (11.9-15.9) 11/09/16 07:00 Plt Count 225 K/MM3 (134-434) 11/09/16 07:00 MPV 8.4 fl (7.5-11.1) 11/09/16 07:00 Sodium 142 mmol/L (136-145) 11/09/16 07:00 Potassium 4.0 mmol/L (3.5-5.1) 11/09/16 07:00 Chloride 106 mmol/L (98-107) 11/09/16 07:00 Carbon Dioxide 27 mmol/L (21-32) 11/09/16 07:00 Anion Gap 9 (8-16) 11/09/16 07:00 BUN 19 mg/dL (7-18) H 11/09/16 07:00 Creatinine 1.2 mg/dL (0.7-1.3) 11/09/16 07:00 Creat Clearance w eGFR > 60 (>60) 11/09/16 07:00 Random Glucose 98 mg/dL (74-106) 11/09/16 07:00 Calcium 8.4 mg/dL (8.5-10.1) L 11/09/16 07:00 Total Bilirubin 0.3 mg/dL (0.2-1.0) 11/09/16 07:00 AST 45 U/L (15-37) H 11/09/16 07:00 ALT 68 U/L (12-78) D 11/09/16 07:00 Alkaline Phosphatase 134 U/L (45-117) H 11/09/16 07:00 Total Protein 5.8 g/dl (6.4-8.2) L 11/09/16 07:00 Albumin 3.0 g/dl (3.4-5.0) L 11/09/16 07:00 Urine Color Dkyellow 11/08/16 21:45 Urine Appearance Clear 11/08/16 21:45 Urine pH 5.0 (5.0-8.0) 11/08/16 21:45 Ur Specific [place] 1.025 (1.005-1.025) 11/08/16 21:45 Urine Protein Negative (NEGATIVE) 11/08/16 21:45 Urine Glucose (UA) Negative (NEGATIVE) 11/08/16 21:45 Urine Ketones Negative (NEGATIVE) 11/08/16 21:45 Urine Blood Negative (NEGATIVE) 11/08/16 21:45 Urine Nitrite Negative (NEGATIVE) 11/08/16 21:45 Urine Bilirubin Negative (NEGATIVE) 11/08/16 21:45 Urine Urobilinogen 2.0 e.u/dl E.U./dl (0.2-1.0) 11/08/16 21:45 Ur Leukocyte Esterase Negative (NEGATIVE) 11/08/16 21:45 RPR Titer Nonreactive (NONREACTIVE) 11/09/16 07:00 Assessment: 11/10/16 10:37 WITHDRAWAL SYMPTOM Plan: CONTINUE DETOX
[2016-11-10] MEDS: chlordiazePOXIDE 5 MG CAPSULE PO SCH ×2 (17:13→22:13)
[2016-11-10] MEDS: THIAMINE HCL 100 MG TABLET (FP) PO SCH (22:13)
[2016-11-10] MEDS: LIDOCAINE PATCH REMOVAL MC SCH (22:14)
[2016-11-11] MEDS: diphenhydrAMINE HCL 50 MG CAPSULE PO PRN ×2 (01:33→22:14)
[2016-11-11] MEDS: chlordiazePOXIDE HCL 25 MG CAPSULE PO PRN (01:33)
[2016-11-11] MEDS: chlordiazePOXIDE 5 MG CAPSULE PO SCH ×2 (05:29→11:00)
[2016-11-11] MEDS: IBUPROFEN 400 MG TABLET (FP) PO PRN ×2 (05:31→17:40)
[2016-11-11] MEDS ORDERED: ONDANSETRON *ODT* 4 MG TABLET SL PRN (09:13)
[2016-11-11] MEDS: RANITIDINE HCL 150 MG TABLET (FP) PO SCH ×2 (10:59→22:14)
[2016-11-11] MEDS: CYCLOBENZAPRINE HCL 10 MG TABLET (FP) PO PRN ×2 (10:59→22:14)
[2016-11-11] MEDS: PRENATAL VITAMINS W/ FOLIC ACID TABLET (FP) PO SCH (10:59)
[2016-11-11] MEDS: METHYL SALICYLATE/MENTHOL OINT 30 GM TUBE TP SCH ×2 (11:00→22:15)
[2016-11-11] MEDS: cloNIDine HCL 0.1 MG TABLET PO SCH ×2 (11:00→22:14)
[2016-11-11] MEDS: METHADONE HCL 5 MG TABLET (FOR DETOX USE ONLY) PO SCH (11:00)
[2016-11-11] MEDS: NICOTINE 21 MG/24 HOURS TOPICAL PATCH TD SCH (11:01)
[2016-11-11] MEDS: FLUOCINONIDE 0.05% TOP OINT (60 GM TUBE) TP SCH ×2 (11:01→22:15)
[2016-11-11] MEDS: LIDOCAINE 5% TOPICAL PATCH TP SCH (11:01)
--- NOTE | 2016-11-11 11:26 | PN ---
S Progress Note (SOAP) Subjective: ALERT,IRRITABLE,ANXIOUS,INTERRUPTED SLEEP,TREMOR,PAIN IN THE BODY AND BACK Objective: 11/11/16 11:25 Vital Signs Temperature 97.9 F 11/11/16 10:07 Pulse Rate 69 11/11/16 10:07 Respiratory Rate 16 11/11/16 10:07 Blood Pressure 146/85 11/11/16 10:07 O2 Sat by Pulse Oximetry (%) Assessment: 11/11/16 11:25 WITHDRAWAL SYMPTOM Plan: CONTINUE DETOX
[2016-11-11] MEDS: chlordiazePOXIDE HCL 10 MG CAPSULE PO SCH ×2 (17:39→22:14)
[2016-11-11] MEDS: THIAMINE HCL 100 MG TABLET (FP) PO SCH (22:14)
[2016-11-12] MEDS: diphenhydrAMINE HCL 50 MG CAPSULE PO PRN (01:45)
[2016-11-12] MEDS: IBUPROFEN 400 MG TABLET (FP) PO PRN ×2 (05:23→14:43)
[2016-11-12] MEDS: chlordiazePOXIDE HCL 10 MG CAPSULE PO SCH ×2 (05:23→10:35)
[2016-11-12] MEDS ORDERED: METHADONE HCL 10 MG TABLET (FOR DETOX USE ONLY) PO SCH (10:00)
[2016-11-12] MEDS: RANITIDINE HCL 150 MG TABLET (FP) PO SCH ×2 (10:35→22:45)
[2016-11-12] MEDS: cloNIDine HCL 0.1 MG TABLET PO SCH ×2 (10:35→22:45)
[2016-11-12] MEDS: PRENATAL VITAMINS W/ FOLIC ACID TABLET (FP) PO SCH (10:36)
[2016-11-12] MEDS: LIDOCAINE 5% TOPICAL PATCH TP SCH ×2 (10:37→10:50)
[2016-11-12] MEDS: NICOTINE 21 MG/24 HOURS TOPICAL PATCH TD SCH (10:37)
[2016-11-12] MEDS: LIDOCAINE PATCH REMOVAL MC SCH ×2 (10:38→22:47)
[2016-11-12] MEDS: FLUOCINONIDE 0.05% TOP OINT (60 GM TUBE) TP SCH ×2 (10:38→22:47)
[2016-11-12] MEDS: METHYL SALICYLATE/MENTHOL OINT 30 GM TUBE TP SCH ×2 (10:38→22:47)
--- NOTE | 2016-11-12 12:34 | PN ---
S Progress Note (SOAP) Subjective: ALERT,IRRITABLE,ANXIOUS,INTERRUPTED SLEEP, Objective: 11/12/16 12:33 Vital Signs Temperature 97.7 F 11/12/16 06:16 Pulse Rate 68 11/12/16 06:16 Respiratory Rate 18 11/12/16 06:16 Blood Pressure 123/82 11/12/16 06:16 O2 Sat by Pulse Oximetry (%) 11/12/16 12:33 11/12/16 12:34 Assessment: 11/12/16 12:34 WITHDRAWAL SYMPTOM Plan: CONTINUE DETOX,DISCHARGE IN AM
[2016-11-12] MEDS: hydrOXYzine PAMOATE 50 MG CAPSULE (FP) PO PRN (14:43)
[2016-11-12] MEDS ORDERED: hydrOXYzine PAMOATE 50 MG CAPSULE (FP) PO SCH (22:00)
[2016-11-12] MEDS: THIAMINE HCL 100 MG TABLET (FP) PO SCH (22:45)
[2016-11-13] MEDS: hydrOXYzine PAMOATE 50 MG CAPSULE (FP) PO PRN (00:51)
[2016-11-13] MEDS: IBUPROFEN 400 MG TABLET (FP) PO PRN (05:35)
[2016-11-13] MEDS ORDERED: METHADONE HCL 5 MG TABLET (FOR DETOX USE ONLY) PO SCH (06:00)
--- NOTE | 2016-11-13 08:59 | PN ---
S Progress Note (SOAP) Subjective: ALERT,NO COMPLAINT Objective: 11/13/16 08:57 Vital Signs Temperature 97.7 F 11/13/16 06:00 Pulse Rate 72 11/13/16 06:00 Respiratory Rate 20 11/13/16 06:00 Blood Pressure 139/73 11/13/16 06:00 O2 Sat by Pulse Oximetry (%) Assessment: 11/13/16 08:57 DETOX COMPLETED,NO WITHDRAWAL SYMPTOM 11/13/16 08:58 Plan: DISCHARGE TODAY,FOLLOW UP WITH AFTER CARE PROGRAM ARRANGEMENT
--- NOTE | 2016-11-13 09:03 | DS ---
[facility] Detox Discharge Summary Admission Date: 11/08/16 Discharge Date: 11/13/16 - History Present History: Alcohol Dependence, Cocaine Dependence, Opioid Dependence, Sedative Dependence Additional Comments: FOLLOW UP WITH AFTER CARE PROGRAM ARRANGEMENT Pertinent Past History: GERD HEPATITIS C - Physical Exam Results Vital Signs: Vital Signs Temperature 97.7 F 11/13/16 06:00 Pulse Rate 72 11/13/16 06:00 Respiratory Rate 20 11/13/16 06:00 Blood Pressure 139/73 11/13/16 06:00 O2 Sat by Pulse Oximetry (%) Pertinent Admission Physical Exam Findings: WITHDRAWAL SYMPTOM - Treatment Hospital Course: Detox Protocol Followed, Detoxed Safely, Responded well, Discharged Condition Good, Rehab Referral Accepted Patient has Accepted a Rehab Referral to: [facility] - Medication Discharge Medications: Ambulatory Orders Unobtainable [Unobtainable] 11/08/16 - Diagnosis (1) Alcohol dependence with uncomplicated withdrawal Current Visit: Yes Status: Chronic (2) Cocaine dependence, uncomplicated Current Visit: Yes Status: Chronic (3) GERD (gastroesophageal reflux disease) Current Visit: Yes Status: Chronic Qualifiers: Esophagitis presence: without esophagitis Qualified Code(s): K21.9 - Gastro-esophageal reflux disease without esophagitis (4) Hepatitis C Current Visit: Yes Status: Chronic Qualifiers: Viral hepatitis chronicity: chronic Hepatic coma status: without hepatic coma Qualified Code(s): B18.2 - Chronic viral hepatitis C (5) Opioid dependence with withdrawal Current Visit: Yes Status: Chronic (6) Sedative, hypnotic or anxiolytic dependence with withdrawal, uncomplicated Current Visit: Yes Status: Chronic - AMA Did Patient Leave Against Medical Advice: No
[2016-11-13 09:54] VITALS: BP 118/75; PULSE 77; TEMP 97.2
[2016-11-13] MEDS: RANITIDINE HCL 150 MG TABLET (FP) PO SCH (10:05)
[2016-11-13] MEDS: PRENATAL VITAMINS W/ FOLIC ACID TABLET (FP) PO SCH (10:05)
[2016-11-13] MEDS: CYCLOBENZAPRINE HCL 10 MG TABLET (FP) PO PRN (10:05)
[2016-11-13] MEDS: METHYL SALICYLATE/MENTHOL OINT 30 GM TUBE TP SCH (10:06)
[2016-11-13] MEDS: FLUOCINONIDE 0.05% TOP OINT (60 GM TUBE) TP SCH (10:07)
[2016-11-13] MEDS: cloNIDine HCL 0.1 MG TABLET PO SCH (10:07)
== END 2016-11-13 10:30 | disposition home or self-care (01) | DRG 773 ==
LOC: YASAS 10:24 → Y6N 15:29
PROVIDERS: ADMIT Internal Medicine; ATTEND Internal Medicine
PROC: HZ2ZZZZ Detoxification Services for Substance Abuse Treatment (ICD-10-PCS; principal; 2016-11-08)
DX: F11.23 Opioid dependence with withdrawal (principal); F13.230 Sedative, hypnotic or anxiolytic dependence with withdrawal, uncomplicated; F10.230 Alcohol dependence with withdrawal, uncomplicated; F14.20 Cocaine dependence, uncomplicated; F17.210 Nicotine dependence, cigarettes, uncomplicated; F19.24 Other psychoactive substance dependence with psychoactive substance-induced mood disorder; K21.9 Gastro-esophageal reflux disease without esophagitis; B18.2 Chronic viral hepatitis C; I10 Essential (primary) hypertension; E66.9 Obesity, unspecified; Z68.35 Body mass index [BMI] 35.0-35.9, adult; R26.2 Difficulty in walking, not elsewhere classified; Z99.89 Dependence on other enabling machines and devices; M16.11 Unilateral primary osteoarthritis, right hip; R21 Rash and other nonspecific skin eruption; Z59.0 Homelessness
CPT/HCPCS: 36415; 80053; 81003; 85027; 86593; 93005; 93010

== ENCOUNTER 2017-01-05 21:30 | Inpatient (IN) | payer OTHER ==
[2017-01-05 21:36] VITALS: BMI 35.4
--- NOTE | 2017-01-05 21:48 | HP ---
COWS - Scale Resting Pulse: 1= [place] 81-100 Sweatin= Chills/Flushing Restless Observation: 0= Sits Still Pupil Size: 1= Pupils >than Normal Bone or Joint Aches: 2= Severe Diffuse Aches Runny Nose/ Eye Tearin= Nasal Congestion GI Upset > 30mins: 2= Nausea/Diarrhea Tremor Observation: 1= Tremor [place], Not Seen Yawning Observation: 1= 1-2x During Session Anxiety or Irritability: 1=Feels Anxious/Irritable Goose Flesh Skin: 3=Piloerection COWS Score: 14 CIWA Score - CIWA Score Nausea/Vomitin Muscle Tremors: 2 Anxiety: 3 Agitation: 3 Paroxysmal Sweats: 2 Orientation: 1-Uncertain about Date Tacttile Disturbances: 1-Very Mild Itch/Numbness Auditory Disturbances: 0-None Visual Disturbances: 0-None Headache: 1-Very Mild CIWA-Ar Total Score: 15 Admission ROS S - HPI Chief Complaint: WITHDRAWAL SYMPTOMS Allergies/Adverse Reactions: Allergies Allergy/AdvReac Type Severity Reaction Status Date / Time No Known Allergies Allergy Verified 11/08/16 14:43 History of Present Illness: 51 y.o. man with an extensive history of drug and alcohol dependence is here seeking detox. He was last here for detox in 11/2016. He reports having a 16 month period of sobriety. Exam Limitations: No Limitations - Ebola screening Have you traveled outside of the country in the last 21 days: No Have you had contact with anyone from an Ebola affected area: No Have you been sick,other than usual withdrawal symptoms: No Do you have a fever: No - Review of Systems Constitutional: Chills, Loss of Appetite, Night Sweats, Changes in sleep EENT: reports: Tearing, Nose Congestion Respiratory: reports: No Symptoms reported Cardiac: reports: No Symptoms Reported GI: reports: Diarrhea, Poor Appetite : reports: No Symptoms Reported Musculoskeletal: reports: Back Pain, Joint Pain (Right-sided hip pain) Integumentary: reports: No Symptoms Reported Neuro: reports: Headache, Numbness Endocrine: reports: No Symptoms Reported Hematology: reports: No Symptoms Reported Psychiatric: reports: Judgement Intact, Mood/Affect Appropiate, Orientated x3, Depressed Other Systems: Reviewed and Negative Patient History - Patient Medical History Hx Anemia: No Hx Asthma: No Hx Chronic Obstructive Pulmonary Disease (COPD): No Hx Cancer: No Hx Cardiac Disorders: No Hx Congestive Heart Failure: No Hx Hypertension: Yes Hx Hypercholesterolemia: No Hx Pacemaker: No HX Cerebrovascular Accident: No Hx Seizures: No Hx Dementia: No Hx Diabetes: No Hx Gastrointestinal Disorders: No Hx Liver Disease: No Hx Genitourinary Disorders: No Hx Sexually Transmitted Disorders: No Hx Renal Disease (ESRD): No Hx Thyroid Disease: No Hx Human Immunodeficiency Virus (HIV): No (negative) Hx Hepatitis C: Yes (Untreated ) Hx Depression: Yes Hx Suicide Attempt: No (denies) Hx Bipolar Disorder: No Hx Schizophrenia: No - Patient Surgical History Past Surgical History: Yes Hx Neurologic Surgery: No Hx Cataract Extraction: No Hx Cardiac Surgery: No Hx Lung Surgery: No Hx Breast Surgery: No Hx Breast Biopsy: No Hx Abdominal Surgery: Yes (abd hernia 2014) Hx Appendectomy: No Hx Cholecystectomy: No Hx Genitourinary Surgery: No Hx Section: No Hx Orthopedic Surgery: Yes (FX. LEFT ELBOW 01/2014) Anesthesia Reaction: No - PPD History Results: CXR 04/2016 PPD to be Administered?: No - Reproductive History Patient is a Female of Child Bearing Age (11 -55 yrs old): No - Smoking Cessation Smoking history: Current every day smoker Have you smoked in the past 12 months: Yes Aproximately how many cigarettes per day: 20 Cigars Per Day: 0 Hx Chewing Tobacco Use: No Initiated information on smoking cessation: Yes 'Breaking Loose' booklet given: 01/05/17 - Substance & Tx. History Hx Alcohol Use: Yes Substance Use Type: Alcohol, Cocaine, Heroin Hx Substance Use Treatment: Yes (DETOX: 11/2016; DENIES EVER SEEKING REHAB SERVICES) - Substances Abused Alcohol Route: Oral Frequency: Daily Amount used: 1 PINT OF LIQUOR; 3-4 24OZ OF BEER Age of first use: 13 Date of Last Use: 01/05/17 Heroin Route: Inhalation Frequency: Daily Amount used: 15-20 BAGS Age of first use: 21 Crack Route: Inhalation Frequency: Daily Amount used: 1 GRAM Age of first use: 20 Date of Last Use: 01/05/17 Family Disease History - Family Disease History Family Disease History: Diabetes: Grandparent (HTN), Mother (HTN), Heart Disease : Grandparent, Mother, Other: Father (alcohol,dsa), Brother (dsa,alcohol) Admission Physical Exam [facility] - Vital Signs Vital Signs: Vital Signs - 24 hr 01/05/17 21:34 Temperature 97.9 F Pulse Rate 84 Respiratory 18 Rate Blood Pressure 115/76 - Physical General Appearance: Yes: Disheveled, Tremorous, Irritable, Anxious HEENTM: Yes: Hearing grossly Normal, Normocephalic, Normal Voice Respiratory: Yes: Chest Non-Tender, Lungs Clear, Normal Breath Sounds, No Respiratory Distress, No Accessory Muscle Use Neck: Yes: No masses,lesions,Nodules, Trachea in good position Breast: Yes: Breast Exam Deferred Cardiology: Yes: Regular Rhythm, Regular Rate Abdominal: Yes: Normal Bowel Sounds, Non Tender, Flat, Soft Genitourinary: Yes: Other (NO COMPLAINTS REPORTED) Back: Yes: Normal Inspection Musculoskeletal: Yes: Joint Stiffness (RIGHT HIP) Extremities: Yes: Normal Capillary Refill, Normal Inspection, Normal Range of Motion, Non-Tender, Tremors Neurological: Yes: rating specialist II-XII NML intact, Fully Oriented, Alert, Normal Mood/ Affect, Normal Response Integumentary: Yes: Normal Color, Dry, Warm Lymphatic: Yes: Within Normal Limits - Diagnostic (1) Alcohol dependence with uncomplicated withdrawal Current Visit: Yes Status: Chronic (2) Cocaine dependence, uncomplicated Current Visit: Yes Status: Chronic (3) Degenerative joint disease of right hip Current Visit: Yes Status: Chronic Qualifiers: Osteoarthritis type: other secondary Qualified Code(s): M16.7 - Other unilateral secondary osteoarthritis of hip (4) Hepatitis C Current Visit: Yes Status: Chronic Qualifiers: Viral hepatitis chronicity: chronic Hepatic coma status: without hepatic coma Qualified Code(s): B18.2 - Chronic viral hepatitis C (5) Nicotine dependence Current Visit: No Status: Chronic Qualifiers: Nicotine product type: cigarettes Substance use status: uncomplicated Qualified Code(s): F17.210 - Nicotine dependence, cigarettes, uncomplicated (6) Opioid dependence with withdrawal Current Visit: Yes Status: Chronic (7) HTN (hypertension) Current Visit: Yes Status: Chronic Cleared for Admission [facility] - Detox or Rehab [facility] Level of Care: Medically Managed Detox Regimen/Protocol: Methadone/Librium [facility] Breath Alcohol Content Breath Alcohol Content: 0 Urine Drug Screen - Results Drug Screen Negative: No Urine Drug Screen Results: JESSE-Cocaine, OPI-Opiates, BZO-Benzodiazepines
[2017-01-05] MEDS ORDERED: MAGNESIUM HYDROX 2400MG/30ML ORAL SUSPENSION 30 ML CUP PO PRN (22:03)
[2017-01-05] MEDS ORDERED: guaiFENesin/D-METHORPHAN HB 10 ML UNIT-DOSE CUPS PO PRN (22:03)
[2017-01-05] MEDS ORDERED: MENTHOL/PHENOL 1 EACH UD MM PRN (22:03)
[2017-01-05] MEDS ORDERED: hydrOXYzine PAMOATE 50 MG CAPSULE (FP) PO PRN (22:03)
[2017-01-05] MEDS ORDERED: chlordiazePOXIDE HCL 25 MG CAPSULE PO ONE (22:03)
[2017-01-05] MEDS ORDERED: LOPERAMIDE HCL 2 MG CAPSULE PO PRN (22:03)
[2017-01-05] MEDS ORDERED: METHADONE HCL 10 MG TABLET (FOR DETOX USE ONLY) PO ONE ×2 (22:03→23:00)
[2017-01-05] MEDS ORDERED: ACETAMINOPHEN 325 MG TABLET (FP) PO PRN (22:03)
[2017-01-05] MEDS ORDERED: P-EPHED 60MG/TRIPROLIDI 2.5MG TABLET PO PRN (22:03)
[2017-01-05] MEDS ORDERED: chlordiazePOXIDE HCL 25 MG CAPSULE PO PRN (22:03)
[2017-01-05] MEDS ORDERED: MAGNESIUM CITRATE 300 ML BOTTLE PO PRN (22:03)
[2017-01-05] MEDS: IBUPROFEN 600 MG TABLET (FP) PO PRN (23:04)
[2017-01-05] MEDS: chlordiazePOXIDE HCL 25 MG CAPSULE PO SCH (23:05)
[2017-01-05] MEDS: diphenhydrAMINE HCL 50 MG CAPSULE PO PRN (23:06)
[2017-01-05] MEDS: MAG HYDROX/AL HYDROX/SIMETH 30 ML UNIT-DOSE CUP PO PRN (23:08)
[2017-01-05] MEDS: LIDOCAINE PATCH REMOVAL MC SCH (23:17)
[2017-01-06] MEDS: diphenhydrAMINE HCL 50 MG CAPSULE PO PRN ×2 (01:12→22:37)
[2017-01-06 02:02] LABS: URINE APPEARANCE CLEAR; URINE BILIRUBIN NEGATIVE (NEGATIVE); URINE BLOOD NEGATIVE (NEGATIVE); URINE COLOR DKYELLOW; URINE GLUCOSE (UA) NEGATIVE (NEGATIVE); URINE KETONE NEGATIVE (NEGATIVE); URINE LEUK ESTERASE NEGATIVE (NEGATIVE); URINE NITRITE NEGATIVE (NEGATIVE); URINE PROTEIN NEGATIVE (NEGATIVE); URINE UROBILINOGEN 4.0 E.U/dl mg/dL (0.2-1.0)
[2017-01-06] MEDS: chlordiazePOXIDE HCL 25 MG CAPSULE PO SCH ×4 (05:25→22:36)
[2017-01-06] MEDS ORDERED: METHADONE HCL 10 MG TABLET (FOR DETOX USE ONLY) PO SCH (10:00)
[2017-01-06 10:06] LABS: ALBUMIN 3.2 g/dl (3.4-5.0); ANION GAP 7 (8-16); CO2 27 mmol/L (21-32)
[2017-01-06 10:08] LABS: MCH 31.1 pg (25.7-33.7); MCHC 33.7 g/dl (32.0-35.9); MEAN CELL VOLUME 92.4 fl (80-96); MEAN PLT VOLUME 7.9 fl (7.5-11.1); PLATELET COUNT 224 K/MM3 (134-434); WHITE BLOOD COUNT 4.9 K/mm3 (4.0-10.0)
[2017-01-06 10:12] LABS: ALK PHOS 124 U/L (45-117); BILIRUBIN,TOTAL 0.3 mg/dL (0.2-1.0); CREATININE 1.3 mg/dL (0.7-1.3); GLUCOSE,RANDOM 102 mg/dL (74-106); SGOT/AST 35 U/L (15-37); SGPT/ALT 47 U/L (12-78); TOT PROT 6.3 g/dl (6.4-8.2)
--- NOTE | 2017-01-06 10:35 | CONSULT ---
[facility] Psychiatric Consult - Data Date of interview: 01/06/17 Admission source: [facility] Identifying data: One of multiple admissions to [facility] for this 50 y/o AA male seeking detox treatment on for alcohol,cocaine and opioid dependence.Patient is single without children,homeless,unemployed and supported on donations from friends/relatives. Substance Abuse History: Discussed with patient in this interview.Mr Toure confirms pattern of substance abuse reveealed in thius [facility] report : Smoking Cessation. Smoking history: Current every day smoker. Have you smoked in the past 12 months: Yes. Aproximately how many cigarettes per day: 20. Cigars Per Day: 0. Hx Chewing Tobacco Use: No. Initiated information on smoking cessation : Yes. 'Breaking Loose' booklet given: 01/05/17. - Substance & Tx. History. Hx Alcohol Use: Yes. Substance Use Type: Alcohol, Cocaine, Heroin. Hx Substance Use Treatment: Yes (DETOX: 11/2016; DENIES EVER SEEKING REHAB SERVICES) . - Substances Abused. Alcohol. Route: Oral. Frequency: Daily. Amount used: 1 PINT OF LIQUOR; 3-4 24OZ OF BEER. Age of first use: 13. Date of Last Use: 01/05/17. Heroin. Route: Inhalation. Frequency: Daily. Amount used: 15-20 BAGS. Age of first use: 21. Crack. Route: Inhalation. Frequency: Daily. Amount used: 1 GRAM. Age of first use: 20. Date of Last Use: 01/05/17 Medical History: Arthritis,cataract of left eye and a history of orthosurgery for a fracture of left elbow (2013). Psychiatric History: Patient denies. Additional Comment: Urine Drug Screen Results: JESSE-Cocaine, OPI-Opiates, BZO- Benzodiazepines.Noted. Mental Status Exam - Mental Status Exam Alert and Oriented to: Time, Place, Person Cognitive Function: Good Patient Appearance: Well Groomed Mood: Hopeful, Euthymic Affect: Appropriate, Normal Range Patient Behavior: Appropriate, Cooperative Speech Pattern: Clear Voice Loudness: Normal Thought Process: Intact, Goal Oriented Thought Disorder: Not Present Hallucinations: Denies Suicidal Ideation: Denies Homicidal Ideation: Denies Insight/Judgement: Poor Sleep: Well Appetite: Good Muscle strength/Tone: Normal Gait/Station: Normal Psychiatric Findings - Problem List ([place] 1, 2,3) (1) Alcohol dependence with uncomplicated withdrawal Current Visit: Yes Status: Acute (2) Cocaine dependence, uncomplicated Current Visit: Yes Status: Acute (3) Opioid dependence with withdrawal Current Visit: Yes Status: Acute (4) Nicotine dependence Current Visit: Yes Status: Acute Qualifiers: Nicotine product type: cigarettes Substance use status: uncomplicated Qualified Code(s): F17.210 - Nicotine dependence, cigarettes, uncomplicated (5) HTN (hypertension) Current Visit: Yes Status: Chronic (6) Hepatitis C Current Visit: Yes Status: Chronic Qualifiers: Viral hepatitis chronicity: chronic Hepatic coma status: without hepatic coma Qualified Code(s): B18.2 - Chronic viral hepatitis C (7) GERD (gastroesophageal reflux disease) Current Visit: Yes Status: Chronic Qualifiers: Esophagitis presence: without esophagitis Qualified Code(s): K21.9 - Gastro-esophageal reflux disease without esophagitis (8) Degenerative joint disease of right hip Current Visit: Yes Status: Chronic Qualifiers: Osteoarthritis type: other secondary Qualified Code(s): M16.7 - Other unilateral secondary osteoarthritis of hip - Initial Treatment Plan Initial Treatment Plan: Psychoeducation.Detoxification.Observation.
[2017-01-06] MEDS: PRENATAL VITAMINS W/ FOLIC ACID TABLET (FP) PO SCH (10:50)
[2017-01-06] MEDS: LIDOCAINE 5% TOPICAL PATCH TP SCH (11:03)
--- NOTE | 2017-01-06 13:06 | PN ---
S CIWA - CIWA Score Nausea/Vomitin Muscle Tremors: 4-Moderate,w/Arms Extend Anxiety: 3 Agitation: 1-Slight > Activity Paroxysmal Sweats: 3 Orientation: 0-Oriented Tacttile Disturbances: 0-None Auditory Disturbances: 2-Mild Harshness/Frighten Visual Disturbances: 3-Moderate Sensitivity Headache: 0-None Present CIWA-Ar Total Score: 18 [facility] COWS - Scale Resting Pulse: 0= [place] 80 or Below Sweatin= Chills/Flushing Restless Observation: 1= Difficult to Sit Still Pupil Size: 0= Normal to Room Light Bone or Joint Aches: 2= Severe Diffuse Aches Runny Nose/ Eye Tearin= Runny Nose/Eyes GI Upset > 30mins: 2= Nausea/Diarrhea Tremor Observation of Outstretched Hands: 2= Slight Tremor Visible Yawning Observation: 1= 1-2x During Session Anxiety or Irritability: 2=Irritable/Anxious Goose Flesh Skin: 3=Piloerection COWS Score: 16 S Progress Note (SOAP) Subjective: Tremors, Diarrhea, Body Aches, Interrupted sleep, Fatigue, Sweating. Objective: PT. A & O 3. NO ACUTE DISTRESS. 01/06/17 13:04 Vital Signs Temperature 97.4 F L 01/06/17 09:58 Pulse Rate 69 01/06/17 09:58 Respiratory Rate 16 01/06/17 09:58 Blood Pressure 123/68 01/06/17 09:58 O2 Sat by Pulse Oximetry (%) Laboratory Tests 01/05/17 01/06/17 01/06/17 23:00 07:30 07:30 WBC 4.9 RBC 4.49 Hgb 14.0 Hct 41.4 MCV 92.4 MCH 31.1 MCHC 33.7 RDW 14.0 Plt Count 224 MPV 7.9 Sodium 140 Potassium 4.3 Chloride 106 Carbon Dioxide 27 Anion Gap 7 L BUN 16 Creatinine 1.3 Creat Clearance w eGFR 57.75 Random Glucose 102 Calcium 9.0 Total Bilirubin 0.3 AST 35 D ALT 47 D Alkaline Phosphatase 124 H Total Protein 6.3 L Albumin 3.2 L Urine Color Dkyellow Urine Appearance Clear Urine pH 5.0 Ur Specific [place] >= 1.030 H Urine Protein Negative Urine Glucose (UA) Negative Urine Ketones Negative Urine Blood Negative Urine Nitrite Negative Urine Bilirubin Negative Urine Urobilinogen 4.0 e.u/dl Ur Leukocyte Esterase Negative LABS NOTED. RPR RESULT PENDING. 01/06/17 13:05 Assessment: 01/06/17 13:04 WITHDRAWAL SYMPTOMS. Plan: CONTINUE DETOX.
[2017-01-06] MEDS: BACITRACIN 0.9 GM PACKET TP SCH (22:36)
[2017-01-06] MEDS: LIDOCAINE PATCH REMOVAL MC SCH (22:36)
[2017-01-06] MEDS: THIAMINE HCL 100 MG TABLET (FP) PO SCH (22:36)
[2017-01-07] MEDS ORDERED: diphenhydrAMINE HCL 25 MG CAPSULE (FP) PO ONE (01:25)
[2017-01-07] MEDS: diphenhydrAMINE HCL 50 MG CAPSULE PO PRN ×2 (01:26→21:51)
[2017-01-07] MEDS: IBUPROFEN 600 MG TABLET (FP) PO PRN ×2 (01:26→17:17)
[2017-01-07] MEDS: chlordiazePOXIDE HCL 25 MG CAPSULE PO SCH ×3 (05:48→17:16)
--- NOTE | 2017-01-07 08:15 | EKG ---
Test Reason : Blood Pressure : / mmHG Vent. Rate : 067 BPM Atrial Rate : 067 BPM P-R Int : 168 ms QRS Dur : 078 ms QT Int : 392 ms P-R-T Axes : 021 037 061 degrees QTc Int : 414 ms NORMAL SINUS RHYTHM NORMAL ECG WHEN COMPARED WITH ECG OF 08-NOV-2016 15:30, NO SIGNIFICANT CHANGE WAS FOUND Confirmed by DYLAN MAYNARD MD ([id number]) on 01/07/2017 8:15:06 AM Referred By: Confirmed By:DYLAN MAYNARD MD
[2017-01-07] MEDS: LIDOCAINE 5% TOPICAL PATCH TP SCH (10:56)
[2017-01-07] MEDS: METHADONE HCL 5 MG TABLET (FOR DETOX USE ONLY) PO SCH (10:56)
[2017-01-07] MEDS: BACITRACIN 0.9 GM PACKET TP SCH ×2 (10:56→21:51)
[2017-01-07] MEDS: PRENATAL VITAMINS W/ FOLIC ACID TABLET (FP) PO SCH (10:57)
--- NOTE | 2017-01-07 16:02 | PN ---
[facility] CIWA - CIWA Score Nausea/Vomitin Muscle Tremors: 2 Anxiety: 2 Agitation: 2 Paroxysmal Sweats: 1-Minimal Palms Moist Orientation: 0-Oriented Tacttile Disturbances: 3-Moderate Itch/Numb/Burn Auditory Disturbances: 2-Mild Harshness/Frighten Visual Disturbances: 0-None Headache: 0-None Present CIWA-Ar Total Score: 14 S COWS - Scale Resting Pulse: 0= [place] 80 or Below Sweatin= Chills/Flushing Restless Observation: 1= Difficult to Sit Still Pupil Size: 0= Normal to Room Light Bone or Joint Aches: 2= Severe Diffuse Aches Runny Nose/ Eye Tearin= Runny Nose/Eyes GI Upset > 30mins: 2= Nausea/Diarrhea Tremor Observation of Outstretched Hands: 2= Slight Tremor Visible Yawning Observation: 1= 1-2x During Session Anxiety or Irritability: 2=Irritable/Anxious Goose Flesh Skin: 3=Piloerection COWS Score: 16 [facility] Progress Note (SOAP) Subjective: Stomach Cramping, Diarrhea, Interrupted Sleep, Lower Back Body Aches. Objective: PT. A & O X 3. NO ACUTE DISTRESS. 01/07/17 16:01 Vital Signs Temperature 97.7 F 01/07/17 14:12 Pulse Rate 61 01/07/17 14:12 Respiratory Rate 18 01/07/17 14:12 Blood Pressure 126/78 01/07/17 14:12 O2 Sat by Pulse Oximetry (%) Laboratory Tests 01/05/17 01/06/17 01/06/17 23:00 07:30 07:30 WBC 4.9 RBC 4.49 Hgb 14.0 Hct 41.4 MCV 92.4 MCH 31.1 MCHC 33.7 RDW 14.0 Plt Count 224 MPV 7.9 Sodium 140 Potassium 4.3 Chloride 106 Carbon Dioxide 27 Anion Gap 7 L BUN 16 Creatinine 1.3 Creat Clearance w eGFR 57.75 Random Glucose 102 Calcium 9.0 Total Bilirubin 0.3 AST 35 D ALT 47 D Alkaline Phosphatase 124 H Total Protein 6.3 L Albumin 3.2 L Urine Color Dkyellow Urine Appearance Clear Urine pH 5.0 Ur Specific [place] >= 1.030 H Urine Protein Negative Urine Glucose (UA) Negative Urine Ketones Negative Urine Blood Negative Urine Nitrite Negative Urine Bilirubin Negative Urine Urobilinogen 4.0 e.u/dl Ur Leukocyte Esterase Negative RPR Titer 01/06/17 07:30 WBC RBC Hgb Hct MCV MCH MCHC RDW Plt Count MPV Sodium Potassium Chloride Carbon Dioxide Anion Gap BUN Creatinine Creat Clearance w eGFR Random Glucose Calcium Total Bilirubin AST ALT Alkaline Phosphatase Total Protein Albumin Urine Color Urine Appearance Urine pH Ur Specific [place] Urine Protein Urine Glucose (UA) Urine Ketones Urine Blood Urine Nitrite Urine Bilirubin Urine Urobilinogen Ur Leukocyte Esterase RPR Titer Nonreactive labs noted. Assessment: 01/07/17 16:01 WITHDRAWAL SYMPTOMS. Plan: CONTINUE DETOX.
[2017-01-07] MEDS: THIAMINE HCL 100 MG TABLET (FP) PO SCH (21:51)
[2017-01-07] MEDS: LIDOCAINE PATCH REMOVAL MC SCH (21:59)
[2017-01-07] MEDS: chlordiazePOXIDE 5 MG CAPSULE PO SCH (22:00)
[2017-01-08] MEDS: chlordiazePOXIDE 5 MG CAPSULE PO SCH ×3 (05:43→16:57)
[2017-01-08] MEDS: IBUPROFEN 600 MG TABLET (FP) PO PRN (05:45)
[2017-01-08] MEDS: BACITRACIN 0.9 GM PACKET TP SCH ×2 (10:39→22:25)
[2017-01-08] MEDS: PRENATAL VITAMINS W/ FOLIC ACID TABLET (FP) PO SCH (10:39)
[2017-01-08] MEDS: METHADONE HCL 5 MG TABLET (FOR DETOX USE ONLY) PO SCH (10:40)
[2017-01-08] MEDS: LIDOCAINE 5% TOPICAL PATCH TP SCH (11:00)
[2017-01-08] MEDS: MAG HYDROX/AL HYDROX/SIMETH 30 ML UNIT-DOSE CUP PO PRN (12:18)
--- NOTE | 2017-01-08 14:10 | PN ---
[facility] Progress Note (SOAP) Subjective: Stomach ache, sweating, interrupted sleep, anxious Objective: 01/08/17 14:10 Last Vital Signs Temp Pulse Resp BP Pulse Ox 97.2 F L 59 L 18 136/86 01/08/17 10:20 01/08/17 10:20 01/08/17 10:20 01/08/17 10:20 Laboratory Tests 01/05/17 01/06/17 01/06/17 23:00 07:30 07:30 WBC 4.9 RBC 4.49 Hgb 14.0 Hct 41.4 MCV 92.4 MCH 31.1 MCHC 33.7 RDW 14.0 Plt Count 224 MPV 7.9 Sodium 140 Potassium 4.3 Chloride 106 Carbon Dioxide 27 Anion Gap 7 L BUN 16 Creatinine 1.3 Creat Clearance w eGFR 57.75 Random Glucose 102 Calcium 9.0 Total Bilirubin 0.3 AST 35 D ALT 47 D Alkaline Phosphatase 124 H Total Protein 6.3 L Albumin 3.2 L Urine Color Dkyellow Urine Appearance Clear Urine pH 5.0 Ur Specific [place] >= 1.030 H Urine Protein Negative Urine Glucose (UA) Negative Urine Ketones Negative Urine Blood Negative Urine Nitrite Negative Urine Bilirubin Negative Urine Urobilinogen 4.0 e.u/dl Ur Leukocyte Esterase Negative RPR Titer 01/06/17 07:30 WBC RBC Hgb Hct MCV MCH MCHC RDW Plt Count MPV Sodium Potassium Chloride Carbon Dioxide Anion Gap BUN Creatinine Creat Clearance w eGFR Random Glucose Calcium Total Bilirubin AST ALT Alkaline Phosphatase Total Protein Albumin Urine Color Urine Appearance Urine pH Ur Specific [place] Urine Protein Urine Glucose (UA) Urine Ketones Urine Blood Urine Nitrite Urine Bilirubin Urine Urobilinogen Ur Leukocyte Esterase RPR Titer Nonreactive Labs noted Assessment: 01/08/17 14:10 Withdrawal symptoms Plan: Continue detox
[2017-01-08] MEDS: diphenhydrAMINE HCL 50 MG CAPSULE PO PRN (22:25)
[2017-01-08] MEDS: THIAMINE HCL 100 MG TABLET (FP) PO SCH (22:25)
[2017-01-08] MEDS: chlordiazePOXIDE HCL 10 MG CAPSULE PO SCH (22:25)
[2017-01-08] MEDS: LIDOCAINE PATCH REMOVAL MC SCH (22:36)
[2017-01-09] MEDS: chlordiazePOXIDE HCL 10 MG CAPSULE PO SCH ×3 (05:35→17:36)
[2017-01-09] MEDS ORDERED: METHADONE HCL 10 MG TABLET (FOR DETOX USE ONLY) PO SCH (10:00)
[2017-01-09] MEDS: PRENATAL VITAMINS W/ FOLIC ACID TABLET (FP) PO SCH (10:30)
[2017-01-09] MEDS: IBUPROFEN 600 MG TABLET (FP) PO PRN ×2 (10:32→22:28)
[2017-01-09] MEDS: LIDOCAINE 5% TOPICAL PATCH TP SCH (10:44)
[2017-01-09] MEDS: BACITRACIN 0.9 GM PACKET TP SCH ×2 (10:44→22:27)
--- NOTE | 2017-01-09 14:12 | PN ---
[facility] Progress Note (SOAP) Subjective: Body Aches, Diarrhea, Fatigue, Stomach Cramping. Objective: PT. A & O X 3. NO ACUTE DISTRESS. 01/09/17 14:09 Vital Signs Temperature 98.1 F 01/09/17 13:17 Pulse Rate 63 01/09/17 13:17 Respiratory Rate 18 01/09/17 13:17 Blood Pressure 136/84 01/09/17 13:17 O2 Sat by Pulse Oximetry (%) Laboratory Tests 01/05/17 01/06/17 01/06/17 23:00 07:30 07:30 WBC 4.9 RBC 4.49 Hgb 14.0 Hct 41.4 MCV 92.4 MCH 31.1 MCHC 33.7 RDW 14.0 Plt Count 224 MPV 7.9 Sodium 140 Potassium 4.3 Chloride 106 Carbon Dioxide 27 Anion Gap 7 L BUN 16 Creatinine 1.3 Creat Clearance w eGFR 57.75 Random Glucose 102 Calcium 9.0 Total Bilirubin 0.3 AST 35 D ALT 47 D Alkaline Phosphatase 124 H Total Protein 6.3 L Albumin 3.2 L Urine Color Dkyellow Urine Appearance Clear Urine pH 5.0 Ur Specific [place] >= 1.030 H Urine Protein Negative Urine Glucose (UA) Negative Urine Ketones Negative Urine Blood Negative Urine Nitrite Negative Urine Bilirubin Negative Urine Urobilinogen 4.0 e.u/dl Ur Leukocyte Esterase Negative RPR Titer 01/06/17 07:30 WBC RBC Hgb Hct MCV MCH MCHC RDW Plt Count MPV Sodium Potassium Chloride Carbon Dioxide Anion Gap BUN Creatinine Creat Clearance w eGFR Random Glucose Calcium Total Bilirubin AST ALT Alkaline Phosphatase Total Protein Albumin Urine Color Urine Appearance Urine pH Ur Specific [place] Urine Protein Urine Glucose (UA) Urine Ketones Urine Blood Urine Nitrite Urine Bilirubin Urine Urobilinogen Ur Leukocyte Esterase RPR Titer Nonreactive LABS NOTED. Assessment: 01/09/17 14:10 WITHDRAWAL SYMPTOMS. Plan: CONTINUE DETOX.
[2017-01-09] MEDS: THIAMINE HCL 100 MG TABLET (FP) PO SCH (22:27)
[2017-01-09] MEDS: LIDOCAINE PATCH REMOVAL MC SCH (22:29)
[2017-01-09] MEDS: diphenhydrAMINE HCL 50 MG CAPSULE PO PRN (22:29)
[2017-01-10] MEDS ORDERED: METHADONE HCL 5 MG TABLET (FOR DETOX USE ONLY) PO SCH (06:00)
--- NOTE | 2017-01-10 08:46 | DS ---
[facility] Detox Discharge Summary Admission Date: 01/05/17 Discharge Date: 01/10/17 - History Present History: Alcohol Dependence, Cocaine Dependence, Opioid Dependence Additional Comments: DETOX COMPLETED. ALERT O X 3. NAD. INSTRUCTED TO FOLLOW UP WITH PCP AT [facility]. Pertinent Past History: GERD-NO MED HTN-NO MED - Physical Exam Results Vital Signs: Vital Signs Temperature 98 F 01/10/17 06:29 Pulse Rate 72 01/10/17 06:29 Respiratory Rate 18 01/10/17 06:29 Blood Pressure 123/78 01/10/17 06:29 O2 Sat by Pulse Oximetry (%) Pertinent Admission Physical Exam Findings: WITHDRAWAL SX Laboratory Last Values WBC 4.9 K/mm3 (4.0-10.0) 01/06/17 07:30 RBC 4.49 M/mm3 (4.00-5.60) 01/06/17 07:30 Hgb 14.0 GM/dL (11.7-16.9) 01/06/17 07:30 Hct 41.4 % (35.4-49) 01/06/17 07:30 MCV 92.4 fl (80-96) 01/06/17 07:30 MCH 31.1 pg (25.7-33.7) 01/06/17 07:30 MCHC 33.7 g/dl (32.0-35.9) 01/06/17 07:30 RDW 14.0 % (11.9-15.9) 01/06/17 07:30 Plt Count 224 K/MM3 (134-434) 01/06/17 07:30 MPV 7.9 fl (7.5-11.1) 01/06/17 07:30 Sodium 140 mmol/L (136-145) 01/06/17 07:30 Potassium 4.3 mmol/L (3.5-5.1) 01/06/17 07:30 Chloride 106 mmol/L (98-107) 01/06/17 07:30 Carbon Dioxide 27 mmol/L (21-32) 01/06/17 07:30 Anion Gap 7 (8-16) L 01/06/17 07:30 BUN 16 mg/dL (7-18) 01/06/17 07:30 Creatinine 1.3 mg/dL (0.7-1.3) 01/06/17 07:30 Creat Clearance w eGFR 57.75 (>60) 01/06/17 07:30 Random Glucose 102 mg/dL (74-106) 01/06/17 07:30 Calcium 9.0 mg/dL (8.5-10.1) 01/06/17 07:30 Total Bilirubin 0.3 mg/dL (0.2-1.0) 01/06/17 07:30 AST 35 U/L (15-37) D 01/06/17 07:30 ALT 47 U/L (12-78) D 01/06/17 07:30 Alkaline Phosphatase 124 U/L (45-117) H 01/06/17 07:30 Total Protein 6.3 g/dl (6.4-8.2) L 01/06/17 07:30 Albumin 3.2 g/dl (3.4-5.0) L 01/06/17 07:30 Urine Color Dkyellow 01/05/17 23:00 Urine Appearance Clear 01/05/17 23:00 Urine pH 5.0 (5.0-8.0) 01/05/17 23:00 Ur Specific [place] >= 1.030 (1.005-1.025) H 01/05/17 23:00 Urine Protein Negative (NEGATIVE) 01/05/17 23:00 Urine Glucose (UA) Negative (NEGATIVE) 01/05/17 23:00 Urine Ketones Negative (NEGATIVE) 01/05/17 23:00 Urine Blood Negative (NEGATIVE) 01/05/17 23:00 Urine Nitrite Negative (NEGATIVE) 01/05/17 23:00 Urine Bilirubin Negative (NEGATIVE) 01/05/17 23:00 Urine Urobilinogen 4.0 e.u/dl mg/dL (0.2-1.0) 01/05/17 23:00 Ur Leukocyte Esterase Negative (NEGATIVE) 01/05/17 23:00 RPR Titer Nonreactive (NONREACTIVE) 01/06/17 07:30 - Treatment Hospital Course: Detox Protocol Followed, Detoxed Safely, Responded well, Discharged Condition Good, Rehab Referral Accepted Patient has Accepted a Rehab Referral to: [facility] - Medication Discharge Medications: Ambulatory Orders Ranitidine [Zantac -] 150 mg PO BID #60 tablet 11/13/16 - Diagnosis (1) Alcohol dependence with uncomplicated withdrawal Current Visit: Yes Status: Acute (2) Cocaine dependence, uncomplicated Current Visit: Yes Status: Acute (3) Nicotine dependence Current Visit: Yes Status: Acute Qualifiers: Nicotine product type: cigarettes Substance use status: uncomplicated Qualified Code(s): F17.210 - Nicotine dependence, cigarettes, uncomplicated (4) Opioid dependence with withdrawal Current Visit: Yes Status: Acute (5) Hepatitis C Current Visit: Yes Status: Chronic Qualifiers: Viral hepatitis chronicity: chronic Hepatic coma status: without hepatic coma Qualified Code(s): B18.2 - Chronic viral hepatitis C (6) Degenerative joint disease of right hip Current Visit: Yes Status: Chronic Qualifiers: Osteoarthritis type: other secondary Qualified Code(s): M16.7 - Other unilateral secondary osteoarthritis of hip - AMA Did Patient Leave Against Medical Advice: No
[2017-01-10 09:22] VITALS: BP 124/91; PULSE 63; TEMP 97.1
[2017-01-10] MEDS: LIDOCAINE 5% TOPICAL PATCH TP SCH (10:32)
[2017-01-10] MEDS: PRENATAL VITAMINS W/ FOLIC ACID TABLET (FP) PO SCH (10:32)
[2017-01-10] MEDS: BACITRACIN 0.9 GM PACKET TP SCH (10:32)
== END 2017-01-10 11:58 | disposition home or self-care (01) | DRG 773 ==
LOC: YASAS 21:30 → Y3N 21:44
PROVIDERS: ADMIT Internal Medicine; ATTEND Internal Medicine
PROC: HZ2ZZZZ Detoxification Services for Substance Abuse Treatment (ICD-10-PCS; principal; 2017-01-05)
DX: F11.23 Opioid dependence with withdrawal (principal); F10.230 Alcohol dependence with withdrawal, uncomplicated; F14.20 Cocaine dependence, uncomplicated; F17.210 Nicotine dependence, cigarettes, uncomplicated; I10 Essential (primary) hypertension; B18.2 Chronic viral hepatitis C; M16.7 Other unilateral secondary osteoarthritis of hip; H26.9 Unspecified cataract; Z59.0 Homelessness
CPT/HCPCS: 36415; 80053; 81003; 85027; 86593; 93005; 93010

== ENCOUNTER 2018-11-19 08:13 | Inpatient (IN) | payer OTHER ==
[2018-11-19 08:41] VITALS: BMI 34.7
--- NOTE | 2018-11-19 09:14 | HP ---
COWS - Scale Resting Pulse: 0= [place] 80 or Below Sweatin= Chills/Flushing Restless Observation: 3= Extraneous Movement Pupil Size: 1= Pupils >than Normal Bone or Joint Aches: 2= Severe Diffuse Aches Runny Nose/ Eye Tearin= Runny Nose/Eyes GI Upset > 30mins: 2= Nausea/Diarrhea Tremor Observation: 2= Slight Tremor Visible Yawning Observation: 2= >3x During Session Anxiety or Irritability: 2=Irritable/Anxious Goose Flesh Skin: 0=Smooth Skin COWS Score: 17 CIWA Score Nausea/Vomitin Muscle Tremors: 2 Anxiety: 2 Agitation: 2 Paroxysmal Sweats: 1-Minimal Palms Moist Orientation: 0-Oriented Tacttile Disturbances: 1-Very Mild Itch/Numbness Auditory Disturbances: 1-Very Mild Visual Disturbances: 0-None Headache: 2-Mild CIWA-Ar Total Score: 13 - Admission Criteria OASAS Guidelines: Admission for Medically Managed Detox: Requires at least one of the followin. CIWA greater than 12 2. Seizures within the past 24 hours 3. Delirium tremens within the past 24 hours 4. Hallucinations within the past 24 hours 5. Acute intervention needed for co occurring medical disorder 6. Acute intervention needed for co occurring psychiatric disorder 7. Severe withdrawal that cannot be handled at a lower level of care (continued vomiting, continued diarrhea, abnormal vital signs) requiring intravenous medication and/or fluids 8. Admission ROS S - [facility] Chief Complaint: i need help to stop using heroin,alcohol,cocaine Allergies/Adverse Reactions: Allergies Allergy/AdvReac Type Severity Reaction Status Date / Time pollen extracts Allergy Verified 11/19/18 08:34 History of Present Illness: this 53 years old male with heroin,alcohol and cocaine dependence,seeking detox, withdrawal symptom multiple admissions in detox,last 08/21 in [facility] history of hypertension,hepatitis c treated s/p right hip replacemant in 06/23 at [place] nicotine dependence 1 pack/day requesting nicotine patch and gum carpal tunnel syndrome both longest sobriety 14 months plan for rehab after detox depression Exam Limitations: No Limitations - Ebola screening Have you traveled outside of the country in the last 21 days: No Have you had contact with anyone from an Ebola affected area: No Do you have a fever: No - Review of Systems Constitutional: Chills, Loss of Appetite, Malaise, Night Sweats, Changes in sleep EENT: reports: Tearing, Nose Congestion Respiratory: reports: No Symptoms reported GI: reports: Abd. Pain w/ defecation, Diarrhea, Nausea, Poor Appetite, Abdominal cramping : reports: No Symptoms Reported Musculoskeletal: reports: Back Pain, Joint Pain, Muscle Pain, Joint Stiffness Integumentary: reports: Dryness Neuro: reports: Headache, Tremors Endocrine: reports: No Symptoms Reported Hematology: reports: No Symptoms Reported Psychiatric: reports: No Sypmtoms Reported, Judgement Intact, Mood/Affect Appropiate, Orientated x3, Depressed Other Systems: Reviewed and Negative Patient History - Patient Medical History Hx Anemia: No Hx Asthma: No Hx Chronic Obstructive Pulmonary Disease (COPD): No Hx Cancer: No Hx Cardiac Disorders: No Hx Congestive Heart Failure: No Hx Hypertension: Yes (non compliance) Hx Hypercholesterolemia: No Hx Pacemaker: No HX Cerebrovascular Accident: No Hx Seizures: No Hx Dementia: No Hx Diabetes: No Hx Gastrointestinal Disorders: No Hx Liver Disease: No Hx Genitourinary Disorders: No Hx Sexually Transmitted Disorders: No Hx Renal Disease (ESRD): No Hx Thyroid Disease: No Hx Human Immunodeficiency Virus (HIV): No (negative 09/21 negative) Hx Hepatitis C: Yes (treated) Hx Depression: Yes Hx Suicide Attempt: No (denies) Hx Bipolar Disorder: No Hx Schizophrenia: No Other Medical History: no suicidal,no homicidal,right hip replacement in 06/23 - Patient Surgical History Past Surgical History: Yes Hx Neurologic Surgery: No Hx Cataract Extraction: No Hx Cardiac Surgery: No Hx Lung Surgery: No Hx Breast Surgery: No Hx Breast Biopsy: No Hx Abdominal Surgery: Yes (abd hernia 2014) Hx Appendectomy: No Hx Cholecystectomy: No Hx Genitourinary Surgery: No Hx Section: No Hx Orthopedic Surgery: Yes (FX. LEFT ELBOW 01/2014) Other Surgical History: right hip replacement in 06/23 Anesthesia Reaction: No - PPD History Previous Implant?: Yes Documented Results: Positive w/o proof Results: CXR 04/2016 PPD to be Administered?: No - Smoking Cessation Smoking history: Current every day smoker Have you smoked in the past 12 months: Yes Aproximately how many cigarettes per day: 20 Cigars Per Day: 0 Hx Chewing Tobacco Use: No Initiated information on smoking cessation: Yes 'Breaking Loose' booklet given: 11/19/18 - Substance & Tx. History Hx Alcohol Use: Yes Hx Substance Use: Yes Substance Use Type: Alcohol, Cocaine, Heroin Hx Substance Use Treatment: Yes (08/21 [facility] [place]) - Substances abused Alcohol Substance route: Oral Frequency: Daily Amount used: 2 pints of liquor Age of first use: 13 Date of last use: 11/18/18 Heroin Substance route: Inhalation Frequency: Daily Amount used: 2.5 bundles Age of first use: 21 Date of last use: 11/19/18 Crack Substance route: Smoking Frequency: 3-6 times per week Amount used: 1.5 grams Age of first use: 20 Date of last use: 11/16/18 Family Disease History - Family Disease History Family Disease History: Diabetes: Grandparent (HTN), Mother (HTN), Heart Disease : Grandparent, Mother, Other: Father (alcohol,dsa), Brother (dsa,alcohol) Admission Physical Exam S - Vital Signs Vital Signs: Vital Signs - 24 hr 11/19/18 08:20 Temperature 97.2 F L Pulse Rate 73 Respiratory 18 Rate Blood Pressure 112/77 - Physical General Appearance: Yes: Moderate Distress, Tremorous, Irritable, Sweating, Anxious HEENTM: Yes: Normal Voice, JOHNSON, Pharynx Normal Respiratory: Yes: Lungs Clear, Normal Breath Sounds, No Respiratory Distress Neck: Yes: No masses,lesions,Nodules, Supple, Trachea in good position Breast: Yes: Within Normal Limits Cardiology: Yes: Within Normal Limits, Regular Rhythm, Regular Rate, S1, S2 Abdominal: Yes: Within Normal Limits (recurrent epigastric hernia), Normal Bowel Sounds, Non Tender, Flat, Soft, Surgical Scar Genitourinary: Yes: Within Normal Limits Back: Yes: Muscle Spasm, Vertebral Tenderness Musculoskeletal: Yes: Back pain, Muscle Pain Extremities: Yes: Normal Range of Motion, Tremors 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 NML intact, Fully Oriented, Alert, Motor Strength 5/5 Integumentary: Yes: Dry Lymphatic: Yes: Within Normal Limits - Diagnostic (1) Opioid dependence with withdrawal Current Visit: No Status: Acute (2) Alcohol dependence with uncomplicated withdrawal Current Visit: No Status: Acute (3) Cocaine dependence, uncomplicated Current Visit: No Status: Acute (4) Nicotine dependence Current Visit: No Status: Chronic Qualifiers: Nicotine product type: cigarettes Substance use status: uncomplicated Qualified Code(s): F17.210 - Nicotine dependence, cigarettes, uncomplicated (5) GERD (gastroesophageal reflux disease) Current Visit: No Status: Chronic Qualifiers: Esophagitis presence: without esophagitis Qualified Code(s): K21.9 - Gastro -esophageal reflux disease without esophagitis (6) HTN (hypertension) Current Visit: No Status: Chronic (7) Hepatitis C Current Visit: No Status: Resolved Qualifiers: Viral hepatitis chronicity: chronic Hepatic coma status: without hepatic coma Qualified Code(s): B18.2 - Chronic viral hepatitis C (8) History of right hip replacement Current Visit: Yes Status: Resolved (9) Recurrent epigastric hernia Current Visit: Yes Status: Resolved Cleared for Admission S - Detox or Rehab S Level of Care: Medically Managed Detox Regimen/Protocol: Methadone/Librium Inpatient Rehab Admission - Rehab Decision to Admit Inpatient rehab admission?: No
[2018-11-19] MEDS ORDERED: cloNIDine HCL 0.1 MG TABLET PO PRN (09:27)
[2018-11-19] MEDS ORDERED: chlordiazePOXIDE HCL 25 MG CAPSULE PO PRN (09:32)
[2018-11-19] MEDS ORDERED: BISMUTH SUBSALICYLATE 262 MG/15 ML BTL PO PRN (09:33)
[2018-11-19] MEDS ORDERED: MAGNESIUM HYDROX 2400MG/30ML ORAL SUSPENSION 30 ML CUP PO PRN (09:33)
[2018-11-19] MEDS ORDERED: hydrOXYzine PAMOATE 25 MG CAPSULE (FP) PO PRN (09:33)
[2018-11-19] MEDS ORDERED: ACETAMINOPHEN 325 MG TABLET (FP) PO PRN ×2 (09:33)
[2018-11-19] MEDS ORDERED: NICOTINE POLACRILEX 2 MG GUM BUC PRN (09:33)
[2018-11-19] MEDS ORDERED: MENTHOL/PHENOL 1 EACH UD MM PRN (09:33)
[2018-11-19] MEDS ORDERED: IBUPROFEN 400 MG TABLET (FP) PO PRN (09:33)
[2018-11-19] MEDS ORDERED: MELATONIN 5 MG TABLETS PO PRN (09:33)
[2018-11-19] MEDS ORDERED: MAGNESIUM CITRATE 300 ML BOTTLE PO PRN (09:33)
[2018-11-19] MEDS ORDERED: METHOCARBAMOL 500 MG TABLET PO PRN (09:33)
[2018-11-19] MEDS ORDERED: METHADONE HCL 10 MG TABLET (FOR DETOX USE ONLY) PO ONE ×2 (10:00→23:00)
[2018-11-19] MEDS: NICOTINE 21 MG/24 HOURS TOPICAL PATCH TD SCH (10:19)
[2018-11-19] MEDS: PRENATAL VITAMINS W/ FOLIC ACID TABLET (FP) PO SCH (10:20)
[2018-11-19] MEDS: chlordiazePOXIDE HCL 25 MG CAPSULE PO SCH ×3 (10:21→22:20)
--- NOTE | 2018-11-19 11:07 | PN ---
JACQUIS Progress Note Note: Patient reports that he is not feeling well and does not want to talk today
[2018-11-19 16:29] LABS: ALBUMIN 4.1 g/dl (3.4-5.0); BILIRUBIN,TOTAL 0.4 mg/dL (0.2-1); BLOOD UREA NITROGEN 20.5 mg/dL (7-18); CREATININE 1.6 mg/dL (0.55-1.3); POTASSIUM 4.3 mmol/L (3.5-5.1); TOT PROT 7.5 g/dl (6.4-8.2)
[2018-11-19 16:44] LABS: HEMATOCRIT 43.1 % (35.4-49); HEMOGLOBIN 14.5 GM/dL (11.7-16.9); MCH 31.8 pg (25.7-33.7); MCHC 33.6 g/dl (32.0-35.9); MEAN CELL VOLUME 94.9 fl (80-96); MEAN PLT VOLUME 8.4 fl (7.5-11.1); PLATELET COUNT 280 K/MM3 (134-434); RBC 4.54 M/mm3 (4.00-5.60); RDW 14.6 % (11.9-15.9); WHITE BLOOD COUNT 5.7 K/mm3 (4.0-10.0)
[2018-11-19] MEDS: THIAMINE HCL 100 MG TABLET (FP) PO SCH (22:20)
[2018-11-20] MEDS: chlordiazePOXIDE HCL 25 MG CAPSULE PO SCH ×4 (05:17→22:10)
[2018-11-20] MEDS: MAG HYDROX/AL HYDROX/SIMETH 30 ML UNIT-DOSE CUP PO PRN (05:18)
--- NOTE | 2018-11-20 08:53 | CONSULT ---
[facility] Psychiatric Consult - Data Date of interview: 11/20/18 Admission source: Self-referred Identifying data: Mr Toure is a 53 years old single Black male, unemployed receiving food stamp, homeless seeing detox treatment for alcohol, opioid and cocaine Substance Abuse History: Reports history od alcohol, heroin and crack cocaine use. Refer to addiction counselor's summary for further information Medical History: Significant for hypertension, arthritis, cataract of left eye, carpal tunnel syndrome and a history of treatment for hepatitis C and multiple surgeries(fracture of left elbow in 2013, right hip replacement in Jun 2018, abdominal hernia repair in 2014). Smokes 20 cigarettes daily. Psychiatric History: Denies history of previous psychiatric treatment. However reports receiving Remeron, Trazadone in the for past for insomnia. Physical/Sexual Abuse/Trauma History: Denies history of emotional, physical or sexual abuse as well as DV relationship. No service Additional Comment: Reports history of multiple previous arrests including 4 felony convictions. No Mental Status Exam - Mental Status Exam Alert and Oriented to: Time, Place Cognitive Function: Fair Patient Appearance: Well Groomed Mood: Depressed Affect: Appropriate Patient Behavior: Cooperative Speech Pattern: Clear Voice Loudness: Normal Thought Process: Intact, Goal Oriented Hallucinations: Denies Suicidal Ideation: Denies Homicidal Ideation: Denies Insight/Judgement: Poor Sleep: Poorly Appetite: Good Muscle strength/Tone: Normal Gait/Station: Normal Psychiatric Findings - Problem List ([place] 1, 2,3) (1) Substance induced mood disorder Current Visit: Yes Status: Acute (2) Substance-induced sleep disorder Current Visit: Yes Status: Acute (3) Alcohol dependence with uncomplicated withdrawal Current Visit: No Status: Acute (4) Opioid dependence with withdrawal Current Visit: No Status: Acute (5) Cocaine dependence, uncomplicated Current Visit: No Status: Acute (6) Nicotine dependence Current Visit: No Status: Chronic Qualifiers: Nicotine product type: cigarettes Substance use status: uncomplicated Qualified Code(s): F17.210 - Nicotine dependence, cigarettes, uncomplicated (7) Degenerative joint disease of right hip Current Visit: No Status: Chronic Qualifiers: Osteoarthritis type: other secondary Qualified Code(s): M16.7 - Other unilateral secondary osteoarthritis of hip (8) GERD (gastroesophageal reflux disease) Current Visit: No Status: Chronic Qualifiers: Esophagitis presence: without esophagitis Qualified Code(s): K21.9 - Gastro -esophageal reflux disease without esophagitis (9) HTN (hypertension) Current Visit: No Status: Chronic (10) Hepatitis C Current Visit: No Status: Resolved Qualifiers: Viral hepatitis chronicity: chronic Hepatic coma status: without hepatic coma Qualified Code(s): B18.2 - Chronic viral hepatitis C (11) History of right hip replacement Current Visit: Yes Status: Resolved (12) Recurrent epigastric hernia Current Visit: Yes Status: Resolved (13) Carpal tunnel syndrome on both sides Current Visit: Yes Status: Chronic - Initial Treatment Plan Initial Treatment Plan: 1) Start Trazadone 100 mg po HS. 2) Continue inpatient detoxification
[2018-11-20] MEDS ORDERED: METHADONE HCL 10 MG TABLET (FOR DETOX USE ONLY) PO ONE (10:00)
[2018-11-20] MEDS: PRENATAL VITAMINS W/ FOLIC ACID TABLET (FP) PO SCH (10:13)
[2018-11-20] MEDS: NICOTINE 21 MG/24 HOURS TOPICAL PATCH TD SCH (10:14)
[2018-11-20 19:09] LABS: URINE APPEARANCE Cloudy; URINE BILIRUBIN NEGATIVE (NEGATIVE); URINE COLOR YELLOW; URINE GLUCOSE (UA) NEGATIVE (NEGATIVE); URINE KETONE Negative (NEGATIVE); URINE LEUK ESTERASE NEGATIVE (NEGATIVE); URINE NITRITE NEGATIVE (NEGATIVE); URINE PROTEIN NEGATIVE (NEGATIVE); URINE UROBILINOGEN 0.2 mg/dL (0.2-1.0)
[2018-11-20] MEDS: THIAMINE HCL 100 MG TABLET (FP) PO SCH (22:10)
[2018-11-20] MEDS: traZODone HCL 100 MG TABLET (FP) PO SCH (22:10)
[2018-11-21] MEDS: chlordiazePOXIDE HCL 25 MG CAPSULE PO SCH (06:15)
[2018-11-21] MEDS ORDERED: METHADONE HCL 10 MG TABLET (FOR DETOX USE ONLY) PO ONE (10:00)
[2018-11-21] MEDS: chlordiazePOXIDE HCL 10 MG CAPSULE PO SCH ×3 (10:40→22:14)
[2018-11-21] MEDS: PRENATAL VITAMINS W/ FOLIC ACID TABLET (FP) PO SCH (10:40)
[2018-11-21] MEDS: NICOTINE 21 MG/24 HOURS TOPICAL PATCH TD SCH (10:41)
[2018-11-21] MEDS ORDERED: chlordiazePOXIDE HCL 10 MG CAPSULE PO PRN (11:00)
--- NOTE | 2018-11-21 15:04 | PN ---
[facility] CIWA - CIWA Score Nausea/Vomitin-Mild Nausea/No Vomiting Muscle Tremors: 1-None Visible, but [place] Anxiety: 1-Mildly Anxious Agitation: 1-Slight > Activity Paroxysmal Sweats: 1-Minimal Palms Moist Orientation: 0-Oriented Tacttile Disturbances: 0-None Auditory Disturbances: 0-None Visual Disturbances: 0-None Headache: 0-None Present CIWA-Ar Total Score: 5 S COWS - Scale Resting Pulse: 1= [place] 81-100 Sweatin= Chills/Flushing Restless Observation: 1= Difficult to Sit Still Pupil Size: 0= Normal to Room Light Bone or Joint Aches: 1= Mild Discomfort Runny Nose/ Eye Tearin= Nasal Congestion GI Upset > 30mins: 1= Stomach Cramp Tremor Observation of Outstretched Hands: 1= Tremor [place], Not Seen Yawning Observation: 1= 1-2x During Session Anxiety or Irritability: 0= None Goose Flesh Skin: 0=Smooth Skin COWS Score: 8 [facility] Progress Note (SOAP) Subjective: pt here for heroin,alcohol,cocaine use, pt seems to be doing better O: Laboratory Tests 11/19/18 11/19/18 11/19/18 09:30 11:45 11:45 WBC 5.7 RBC 4.54 Hgb 14.5 Hct 43.1 MCV 94.9 MCH 31.8 MCHC 33.6 RDW 14.6 Plt Count 280 D MPV 8.4 Sodium 138 Potassium 4.3 Chloride 104 Carbon Dioxide 28 Anion Gap 6 L BUN 20.5 H Creatinine 1.6 H Est GFR (CKD-EPI)AfAm 55.39 Est GFR (CKD-EPI)NonAf 47.79 Random Glucose 108 H Calcium 9.0 Total Bilirubin 0.4 AST 22 ALT 27 Alkaline Phosphatase 137 H Total Protein 7.5 Albumin 4.1 Urine Color Urine Appearance Urine pH Ur Specific [place] Urine Protein Urine Glucose (UA) Urine Ketones Urine Blood Urine Nitrite Urine Bilirubin Urine Urobilinogen Ur Leukocyte Esterase Urine WBC (Auto) Urine RBC (Auto) Urine Casts (Auto) U Pathogenic Cast Auto U Epithel Cells (Auto) U Sm Round Cell (Auto) Urine Crystals (Auto) Urine Bacteria (Auto) RPR Titer HIV 1&2 Antibody Screen Negative HIV P24 Antigen Negative 11/19/18 11/19/18 11:45 15:45 WBC RBC Hgb Hct MCV MCH MCHC RDW Plt Count MPV Sodium Potassium Chloride Carbon Dioxide Anion Gap BUN Creatinine Est GFR (CKD-EPI)AfAm Est GFR (CKD-EPI)NonAf Random Glucose Calcium Total Bilirubin AST ALT Alkaline Phosphatase Total Protein Albumin Urine Color Yellow Urine Appearance Cloudy Urine pH 5.0 Ur Specific [place] 1.024 Urine Protein Negative Urine Glucose (UA) Negative Urine Ketones Negative Urine Blood Negative Urine Nitrite Negative Urine Bilirubin Negative Urine Urobilinogen 0.2 Ur Leukocyte Esterase Negative Urine WBC (Auto) No Result Required. Urine RBC (Auto) No Result Required. Urine Casts (Auto) No Result Required. U Pathogenic Cast Auto No Result Required. U Epithel Cells (Auto) No Result Required. U Sm Round Cell (Auto) No Result Required. Urine Crystals (Auto) No Result Required. Urine Bacteria (Auto) No Result Required. RPR Titer Nonreactive HIV 1&2 Antibody Screen HIV P24 Antigen increased BUN/Cr a/p: continue alcohol opioid detox protocols- pt doing better
[2018-11-21] MEDS: traZODone HCL 100 MG TABLET (FP) PO SCH (22:14)
[2018-11-21] MEDS: THIAMINE HCL 100 MG TABLET (FP) PO SCH (22:14)
[2018-11-22] MEDS: chlordiazePOXIDE HCL 10 MG CAPSULE PO SCH ×3 (05:35→22:11)
[2018-11-22] MEDS ORDERED: METHADONE HCL 5 MG TABLET (FOR DETOX USE ONLY) ONE (09:40)
[2018-11-22] MEDS ORDERED: METHADONE HCL 10 MG TABLET (FOR DETOX USE ONLY) ONE (09:40)
--- NOTE | 2018-11-22 09:55 | PN ---
[facility] CIWA - CIWA Score Nausea/Vomitin Muscle Tremors: 2 Anxiety: 2 Agitation: 2 Paroxysmal Sweats: 1-Minimal Palms Moist Orientation: 0-Oriented Tacttile Disturbances: 1-Very Mild Itch/Numbness Auditory Disturbances: 1-Very Mild Visual Disturbances: 0-None Headache: 1-Very Mild CIWA-Ar Total Score: 12 [facility]HS COWS - Scale Resting Pulse: 0= [place] 80 or Below Sweatin= Chills/Flushing Restless Observation: 1= Difficult to Sit Still Pupil Size: 1= Pupils >than Normal Bone or Joint Aches: 2= Severe Diffuse Aches Runny Nose/ Eye Tearin= Runny Nose/Eyes GI Upset > 30mins: 2= Nausea/Diarrhea Tremor Observation of Outstretched Hands: 2= Slight Tremor Visible Yawning Observation: 1= 1-2x During Session Anxiety or Irritability: 2=Irritable/Anxious Goose Flesh Skin: 0=Smooth Skin COWS Score: 14 S Progress Note (SOAP) Subjective: alert,irritable,anxious,interrupted sleep,tremor,pain in the body and back Objective: 11/22/18 09:53 t96.4,p59,r18,bp 132/77 Assessment: 11/22/18 09:53 withdrawal symptom Plan: continue detox
[2018-11-22] MEDS ORDERED: METHADONE (DETOX) 10 MG, METHADONE (DETOX) 5 MG PO ONE (10:00)
[2018-11-22] MEDS ORDERED: METHADONE HCL 10 MG TABLET (FOR DETOX USE ONLY) PO ONE (10:00)
--- NOTE | 2018-11-22 10:00 | PN ---
S CIWA - CIWA Score Nausea/Vomitin Muscle Tremors: 2 Anxiety: 2 Agitation: 1-Slight > Activity Paroxysmal Sweats: No Perspiration Orientation: 0-Oriented Tacttile Disturbances: 1-Very Mild Itch/Numbness Auditory Disturbances: 1-Very Mild Visual Disturbances: 0-None Headache: 1-Very Mild CIWA-Ar Total Score: 10 BHS COWS - Scale Resting Pulse: 0= [place] 80 or Below Sweatin= Chills/Flushing Restless Observation: 1= Difficult to Sit Still Pupil Size: 1= Pupils >than Normal Bone or Joint Aches: 1= Mild Discomfort Runny Nose/ Eye Tearin= Nasal Congestion GI Upset > 30mins: 2= Nausea/Diarrhea Tremor Observation of Outstretched Hands: 2= Slight Tremor Visible Yawning Observation: 1= 1-2x During Session Anxiety or Irritability: 1=Feels Anxious/Irritable Goose Flesh Skin: 0=Smooth Skin COWS Score: 11 S Progress Note (SOAP) Subjective: alert,irritable,anxious,interrupted sleep,pain in the body and back Objective: 11/22/18 09:58 Vital Signs Temperature 97.5 F L 11/22/18 09:09 Pulse Rate 63 11/22/18 09:09 Respiratory Rate 16 11/22/18 09:09 Blood Pressure 111/68 11/22/18 09:09 O2 Sat by Pulse Oximetry (%) 11/22/18 09:59 Laboratory Last Values WBC 5.7 K/mm3 (4.0-10.0) 11/19/18 11:45 RBC 4.54 M/mm3 (4.00-5.60) 11/19/18 11:45 Hgb 14.5 GM/dL (11.7-16.9) 11/19/18 11:45 Hct 43.1 % (35.4-49) 11/19/18 11:45 MCV 94.9 fl (80-96) 11/19/18 11:45 MCH 31.8 pg (25.7-33.7) 11/19/18 11:45 MCHC 33.6 g/dl (32.0-35.9) 11/19/18 11:45 RDW 14.6 % (11.9-15.9) 11/19/18 11:45 Plt Count 280 K/MM3 (134-434) D 11/19/18 11:45 MPV 8.4 fl (7.5-11.1) 11/19/18 11:45 Sodium 138 mmol/L (136-145) 11/19/18 11:45 Potassium 4.3 mmol/L (3.5-5.1) 11/19/18 11:45 Chloride 104 mmol/L (98-107) 11/19/18 11:45 Carbon Dioxide 28 mmol/L (21-32) 11/19/18 11:45 Anion Gap 6 MMOL/L (8-16) L 11/19/18 11:45 BUN 20.5 mg/dL (7-18) H 11/19/18 11:45 Creatinine 1.6 mg/dL (0.55-1.3) H 11/19/18 11:45 Est GFR (CKD-EPI)AfAm 55.39 11/19/18 11:45 Est GFR (CKD-EPI)NonAf 47.79 11/19/18 11:45 Random Glucose 108 mg/dL (74-106) H 11/19/18 11:45 Calcium 9.0 mg/dL (8.5-10.1) 11/19/18 11:45 Total Bilirubin 0.4 mg/dL (0.2-1) 11/19/18 11:45 AST 22 U/L (15-37) 11/19/18 11:45 ALT 27 U/L (13-61) 11/19/18 11:45 Alkaline Phosphatase 137 U/L (45-117) H 11/19/18 11:45 Total Protein 7.5 g/dl (6.4-8.2) 11/19/18 11:45 Albumin 4.1 g/dl (3.4-5.0) 11/19/18 11:45 Urine Color Yellow 11/19/18 15:45 Urine Appearance Cloudy 11/19/18 15:45 Urine pH 5.0 (5.0-8.0) 11/19/18 15:45 Ur Specific [place] 1.024 (1.010-1.035) 11/19/18 15:45 Urine Protein Negative (NEGATIVE) 11/19/18 15:45 Urine Glucose (UA) Negative (NEGATIVE) 11/19/18 15:45 Urine Ketones Negative (NEGATIVE) 11/19/18 15:45 Urine Blood Negative (NEGATIVE) 11/19/18 15:45 Urine Nitrite Negative (NEGATIVE) 11/19/18 15:45 Urine Bilirubin Negative (NEGATIVE) 11/19/18 15:45 Urine Urobilinogen 0.2 mg/dL (0.2-1.0) 11/19/18 15:45 Ur Leukocyte Esterase Negative (NEGATIVE) 11/19/18 15:45 Urine WBC (Auto) No Result Required. 11/19/18 15:45 Urine RBC (Auto) No Result Required. 11/19/18 15:45 Urine Casts (Auto) No Result Required. 11/19/18 15:45 U Pathogenic Cast Auto No Result Required. 11/19/18 15:45 U Epithel Cells (Auto) No Result Required. 11/19/18 15:45 U Sm Round Cell (Auto) No Result Required. 11/19/18 15:45 Urine Crystals (Auto) No Result Required. 11/19/18 15:45 Urine Bacteria (Auto) No Result Required. 11/19/18 15:45 RPR Titer Nonreactive (NONREACTIVE) 11/19/18 11:45 HIV 1&2 Antibody Screen Negative 11/19/18 09:30 HIV P24 Antigen Negative 11/19/18 09:30 Assessment: 11/22/18 09:59 withdrawal symptom Plan: contiune detox,hydration,fluid,repeat cmp in am
[2018-11-22] MEDS: PRENATAL VITAMINS W/ FOLIC ACID TABLET (FP) PO SCH (10:32)
[2018-11-22] MEDS: NICOTINE 21 MG/24 HOURS TOPICAL PATCH TD SCH (10:33)
[2018-11-22] MEDS: MAG HYDROX/AL HYDROX/SIMETH 30 ML UNIT-DOSE CUP PO PRN (10:35)
[2018-11-22] MEDS: traZODone HCL 100 MG TABLET (FP) PO SCH (22:10)
[2018-11-22] MEDS: THIAMINE HCL 100 MG TABLET (FP) PO SCH (22:11)
[2018-11-23] MEDS ORDERED: METHADONE HCL 5 MG TABLET (FOR DETOX USE ONLY) PO ONE (06:00)
--- NOTE | 2018-11-23 09:53 | PN ---
[facility] CIWA - CIWA Score Nausea/Vomitin-Mild Nausea/No Vomiting Muscle Tremors: 1-None Visible, but [place] Anxiety: 1-Mildly Anxious Agitation: 1-Slight > Activity Paroxysmal Sweats: No Perspiration Orientation: 0-Oriented Tacttile Disturbances: 1-Very Mild Itch/Numbness Auditory Disturbances: 0-None Visual Disturbances: 0-None Headache: 1-Very Mild CIWA-Ar Total Score: 6 BHS COWS - Scale Resting Pulse: 0= [place] 80 or Below Sweatin= Chills/Flushing Restless Observation: 1= Difficult to Sit Still Pupil Size: 1= Pupils >than Normal Bone or Joint Aches: 1= Mild Discomfort Runny Nose/ Eye Tearin= Nasal Congestion GI Upset > 30mins: 1= Stomach Cramp Tremor Observation of Outstretched Hands: 1= Tremor [place], Not Seen Yawning Observation: 1= 1-2x During Session Anxiety or Irritability: 2=Irritable/Anxious Goose Flesh Skin: 0=Smooth Skin COWS Score: 10 [facility] Progress Note (SOAP) Subjective: alert,irritable,anxious,interrupted sleep,tremor pain in the body Objective: 11/23/18 09:53 Vital Signs Temperature 97.7 F 11/23/18 06:00 Pulse Rate 66 11/23/18 06:00 Respiratory Rate 20 11/23/18 06:00 Blood Pressure 108/63 11/23/18 06:00 O2 Sat by Pulse Oximetry (%) Assessment: 11/23/18 09:53 withdrawal symptom Plan: continue detox,discharge in am
[2018-11-23] MEDS ORDERED: METHADONE HCL 10 MG TABLET (FOR DETOX USE ONLY) PO ONE (10:00)
[2018-11-23] MEDS: chlordiazePOXIDE HCL 10 MG CAPSULE PO SCH (10:19)
[2018-11-23] MEDS: PRENATAL VITAMINS W/ FOLIC ACID TABLET (FP) PO SCH (10:19)
[2018-11-23] MEDS: NICOTINE 21 MG/24 HOURS TOPICAL PATCH TD SCH (10:40)
[2018-11-23 12:01] LABS: BILIRUBIN,TOTAL 0.2 mg/dL (0.2-1); BLOOD UREA NITROGEN 18.6 mg/dL (7-18); CALCIUM 8.9 mg/dL (8.5-10.1); CREATININE 1.2 mg/dL (0.55-1.3); POTASSIUM 4.3 mmol/L (3.5-5.1); TOT PROT 5.8 g/dl (6.4-8.2)
[2018-11-23] MEDS: THIAMINE HCL 100 MG TABLET (FP) PO SCH (22:26)
[2018-11-23] MEDS: traZODone HCL 100 MG TABLET (FP) PO SCH (22:26)
[2018-11-24] MEDS ORDERED: METHADONE HCL 5 MG TABLET (FOR DETOX USE ONLY) PO ONE (06:00)
[2018-11-24 09:01] VITALS: BP 124/97; PULSE 72; TEMP 98.1
--- NOTE | 2018-11-24 10:19 | DS ---
[facility] Detox Discharge Summary Admission Date: 11/19/18 Discharge Date: 11/24/18 - History Present History: Alcohol Dependence, Opioid Dependence - Physical Exam Results Vital Signs: Vital Signs Temperature 98.1 F 11/24/18 09:01 Pulse Rate 72 11/24/18 09:01 Respiratory Rate 16 11/24/18 09:01 Blood Pressure 124/97 11/24/18 09:01 O2 Sat by Pulse Oximetry (%) - Treatment Hospital Course: Detox Protocol Followed, Detoxed Safely, Responded well, Discharged Condition Good - Medication Discharge Medications: Ambulatory Orders Loratadine [Claritin] 10 mg PO DAILY 11/19/18 - Diagnosis (1) Opioid dependence Current Visit: Yes Status: Chronic Qualifiers: Substance use status: uncomplicated Qualified Code(s): F11.20 - Opioid dependence, uncomplicated (2) Cocaine dependence, uncomplicated Current Visit: No Status: Chronic (3) Nicotine dependence Current Visit: No Status: Chronic Qualifiers: Nicotine product type: cigarettes Substance use status: uncomplicated Qualified Code(s): F17.210 - Nicotine dependence, cigarettes, uncomplicated (4) Alcohol dependence Current Visit: Yes Status: Chronic Qualifiers: Substance use status: uncomplicated Qualified Code(s): F10.20 - Alcohol dependence, uncomplicated - AMA Did Patient Leave Against Medical Advice: No
== END 2018-11-24 09:07 | disposition home or self-care (01) | DRG 773 ==
LOC: YASAS 08:13 → Y6N 09:39
PROVIDERS: ADMIT Surgery; ATTEND Surgery
PROC: HZ2ZZZZ Detoxification Services for Substance Abuse Treatment (ICD-10-PCS; principal; 2018-11-19)
DX: F11.23 Opioid dependence with withdrawal (principal); F10.230 Alcohol dependence with withdrawal, uncomplicated; F14.20 Cocaine dependence, uncomplicated; F17.210 Nicotine dependence, cigarettes, uncomplicated; F19.24 Other psychoactive substance dependence with psychoactive substance-induced mood disorder; F19.282 Other psychoactive substance dependence with psychoactive substance-induced sleep disorder; I10 Essential (primary) hypertension; K43.2 Incisional hernia without obstruction or gangrene; K21.9 Gastro-esophageal reflux disease without esophagitis; G56.03 Carpal tunnel syndrome, bilateral upper limbs; Z96.641 Presence of right artificial hip joint; M16.7 Other unilateral secondary osteoarthritis of hip; Z59.0 Homelessness
CPT/HCPCS: 36415; 71046-TC-FY; 80053; 81003; 85027; 86593; 87389

== ENCOUNTER 2019-01-03 08:23 | Inpatient (IN) | payer OTHER | END 2019-01-07 15:26 | disposition home or self-care (01) | LOC: YASAS 08:23 → Y6N 10:36 ==